=== PATIENT | male | born 1975 | race Caucasian/White ===

== ENCOUNTER 2017-04-25 19:36 | Observation (INO) | payer OTHER ==
[~2017-04-25] VITALS: Ht 188 cm; Wt 137.1 kg
[~2017-04-25 19:36] MED LIST: ALBU90OI INH; ALBU90OI6 INH; ASPI81CH PO; AZIT250 PO; BENZ100A PO; CETI10 PO; CYCL10; CYCL10 PO; DIPH50 PO; DULO30 PO; Dazidox10 MG PO; EPIN.3I IM; ERYT500 PO; FLUT110OIA IH; GABA800 PO; GUAI600T33 PO; HYDACE5; HYDACE5 PO; HYDACE5325 PO; HYDGUAL120 PO; HYDR.5TC TOP; IBUP200; IBUP800 PO; LISI20 PO; META800 PO; MONT10T; NAPR500; NAPR500 PO; OXYACE5T PO; OXYACE7.5T PO; PANT40 PO; PRED20 PO; PROACE100 PO; PROM25 PO; Percocet 10-321 EACH PO; Percocet 5-3251 EACH PO; RANI150 PO; SULTRIDS PO; TYLENOL COLD & FLU; Zofran Odt4 MG PO; [UNRECOGNIZED DRUG - CODE]; [UNRECOGNIZED DRUG - CODE] PO; [UNRECOGNIZED DRUG - OTHER]
[2017-04-25] MEDS ORDERED: OXYC10TA19 PO (20:33)
[2017-04-25] MEDS ORDERED: GABA600 PO (20:33)
[2017-04-25 20:42] LABS: Alanine Aminotransfer (ALT/SGP 55 U/L (12-78); Albumin, Blood 3.6 g/dL (3.4-5.0); Albumin/Globulin Ratio 1.2 (0.8-1.8); Alk Phos 46 U/L (50-136); Anion Gap 8 mmol/L (6-16); Aspartate Aminotrans (AST/SGOT 35 U/L (12-37); Bilirubin, Total 0.3 mg/dL (0.1-1.0); Blood Urea Nitrogen 11 mg/dL (8-24); Bun/Creatinine Ratio 16.1 (12.0-20.0); CO2, Blood 26 mmol/L (21-32); Calcium, Blood 8.3 mg/dL (8.5-10.1); Chloride, Blood 108 mmol/L (98-108); Creatinine, Blood 0.68 mg/dL (0.60-1.20); Globulin, Blood 3.1 g/dL (2.2-4.0); Glomerular Filtration Rate >60 (60-); Glucose, Blood 124 mg/dL (70-99); Potassium, Blood 3.9 mmol/L (3.5-5.5); Sodium, Blood 142 mmol/L (136-145); Total Protein, Blood 6.7 g/dL (6.4-8.2); Troponin I 0.037 ng/mL (0.000-0.040)
[2017-04-25 21:11] LABS: BASOPHILS ABSOLUTE AUTO 0.09 K/mm3 (0.00-0.23); BASOPHILS PERCENT AUTO 1 % (0-2); EOSINOPHILS PERCENT AUTO 6 % (0-6); Hematocrit 40.6 % (37.0-53.0); IMMATURE GRAN ABSOLUTE AUTO 0.06 K/mm3 (0.00-0.10); IMMATURE GRAN PERCENT AUTO 1 % (0-1); LYMPHOCYTES PERCENT AUTO 32 % (21-46); MONOCYTES PERCENT AUTO 11 % (4-13); Mean Corpuscular HGB 29.7 pg (26.0-34.0); Mean Corpuscular HGB Conc 34.5 g/dL (31.5-36.5); Mean Corpuscular Volume 86 fL (80-100); Mean Platelet Volume 9.5 fL (9.1-12.4); NEUTROPHILS ABSOLUTE AUTO 3.07 K/mm3 (1.96-9.15); NEUTROPHILS PERCENT AUTO 49 % (41-73); Platelet Count 215 K/mm3 (150-400); RDW Coefficient Variation 11.7 % (11.7-14.2); RDW Standard Deviation 37.2 fL (35.1-46.3); Red Blood Cell Count 4.72 M/mm3 (4.30-5.90); White Blood Cell Count 6.32 K/mm3 (4.00-11.30)
[2017-04-26 04:48] LABS: Cholesterol 180 mg/dL (50-200); HDL Cholesterol 36 mg/dL (>39); LDL/HDL RATIO 2.1; Low Density Lipoprotein Chol 76 mg/dL (0-110); Triglycerides 341 mg/dL (30-160); Very Low Density Lipoprot Chol 68 mg/dL (6-32)
[2017-10-23] MEDS ORDERED: OXYC10ER PO (18:36)
[2017-11-16] MEDS ORDERED: CARV6.25 PO (12:41)
[2017-11-16] MEDS ORDERED: SPIR25 PO (12:41)
[2017-12-23] MEDS ORDERED: AMLO5 PO (15:51)
[2017-12-23] MEDS ORDERED: MORP15ER PO (15:51)
[2017-12-23] MEDS ORDERED: ISOMON20 PO (15:52)
[2017-12-23] MEDS ORDERED: NEBI5 PO (15:53)
[2017-12-23] MEDS ORDERED: ATOR20 PO (15:53)
[2018-01-05] MEDS ORDERED: TRAM50 PO (18:35)
[2018-01-05] MEDS ORDERED: METO25ER PO (18:37)
[2018-01-05] MEDS ORDERED: Nitroglycerin1 EAC1 TD (18:55)
[2018-01-20] MEDS ORDERED: Isosorbide Mono60 MG PO (14:19)
[2018-01-20] MEDS ORDERED: ACETAMINOPHEN500 MG PO (14:24)
== END 2017-04-26 18:30 | disposition home or self-care (01) ==
LOC: ER 19:36 → PCU 19:37
PROVIDERS: Emergency Medicine; Family Medicine
PROC: B2111ZZ Fluoroscopy of Multiple Coronary Arteries using Low Osmolar Contrast (ICD-10-PCS; principal; 2017-04-26)
DX: R07.89 Other chest pain (principal); E78.5 Hyperlipidemia, unspecified; I10 Essential (primary) hypertension; K21.9 Gastro-esophageal reflux disease without esophagitis; S39.012A Strain of muscle, fascia and tendon of lower back, initial encounter; M25.511 Pain in right shoulder; E66.01 Morbid (severe) obesity due to excess calories; G47.33 Obstructive sleep apnea (adult) (pediatric); G89.4 Chronic pain syndrome; W11.XXXA Fall on and from ladder, initial encounter; Y93.9 Activity, unspecified; Y92.9 Unspecified place or not applicable; Y99.9 Unspecified external cause status; Z79.82 Long term (current) use of aspirin; Z79.899 Other long term (current) drug therapy; Z88.8 Allergy status to other drugs, medicaments and biological substances; Z88.0 Allergy status to penicillin; Z88.1 Allergy status to other antibiotic agents
CPT/HCPCS: 36415; 71046; 72131; 73030; 80053; 80061; 83880; 84484; 85025; 93005; 93010; 93454; 96374; 96376; 99152; 99153; 99285; C1769; C1894; G0378; J1170; J1644; J2250; J2270; J3010; J7030; Q9967

== ENCOUNTER 2017-05-04 19:43 | Emergency (ER) | payer OTHER ==
[~2017-05-04] VITALS: Ht 190.5 cm; Wt 140.6 kg
[~2017-05-04 19:43] MED LIST changes: +GABA600 PO; +OXYC10TA19 PO
[2017-05-04] MEDS ORDERED: DILTIAZEM 24HR180 MG PO (19:55)
[2017-05-04 20:17] LABS: BASOPHILS ABSOLUTE AUTO 0.14 K/mm3 (0.00-0.23); BASOPHILS PERCENT AUTO 1 % (0-2); EOSINOPHILS ABSOLUTE AUTO 0.43 K/mm3 (0.00-0.68); EOSINOPHILS PERCENT AUTO 4 % (0-6); Hemoglobin 15.3 g/dL (13.5-17.5); IMMATURE GRAN ABSOLUTE AUTO 0.11 K/mm3 (0.00-0.10); IMMATURE GRAN PERCENT AUTO 1 % (0-1); LYMPHOCYTES ABSOLUTE AUTO 2.08 K/mm3 (0.84-5.20); LYMPHOCYTES PERCENT AUTO 21 % (21-46); MONOCYTES ABSOLUTE AUTO 0.74 K/mm3 (0.16-1.47); MONOCYTES PERCENT AUTO 8 % (4-13); Mean Corpuscular HGB 29.8 pg (26.0-34.0); Mean Corpuscular HGB Conc 34.8 g/dL (31.5-36.5); Mean Corpuscular Volume 86 fL (80-100); Mean Platelet Volume 9.9 fL (9.1-12.4); NEUTROPHILS PERCENT AUTO 64 % (41-73); Platelet Count 270 K/mm3 (150-400); RDW Coefficient Variation 11.7 % (11.7-14.2); RDW Standard Deviation 36.6 fL (35.1-46.3); Red Blood Cell Count 5.13 M/mm3 (4.30-5.90)
[2017-05-04 20:39] LABS: Alanine Aminotransfer (ALT/SGP 46 U/L (12-78); Albumin, Blood 3.9 g/dL (3.4-5.0); Albumin/Globulin Ratio 1.2 (0.8-1.8); Alk Phos 57 U/L (50-136); Anion Gap 11 mmol/L (6-16); Aspartate Aminotrans (AST/SGOT 20 U/L (12-37); Bilirubin, Total 0.3 mg/dL (0.1-1.0); Blood Urea Nitrogen 10 mg/dL (8-24); Bun/Creatinine Ratio 15.7 (12.0-20.0); CO2, Blood 23 mmol/L (21-32); Calcium, Blood 8.4 mg/dL (8.5-10.1); Chloride, Blood 105 mmol/L (98-108); Creatinine, Blood 0.64 mg/dL (0.60-1.20); Globulin, Blood 3.3 g/dL (2.2-4.0); Glomerular Filtration Rate >60 (60-); Glucose, Blood 182 mg/dL (70-99); Potassium, Blood 3.6 mmol/L (3.5-5.5); Sodium, Blood 139 mmol/L (136-145); Total Protein, Blood 7.2 g/dL (6.4-8.2); Troponin I 0.032 ng/mL (0.000-0.040)
[2017-05-04] MEDS ORDERED: IBUP600 PO (21:35)
[2017-05-04] MEDS ORDERED: Ativan1 MG SL (21:45)
[2017-05-04] MEDS ORDERED: HYDR1TAB94 PO (21:45)
[2017-10-23] MEDS ORDERED: OXYC10ER PO (18:36)
[2017-11-16] MEDS ORDERED: CARV6.25 PO (12:41)
[2017-11-16] MEDS ORDERED: SPIR25 PO (12:41)
[2017-12-23] MEDS ORDERED: MORP15ER PO (15:51)
[2017-12-23] MEDS ORDERED: AMLO5 PO (15:51)
[2017-12-23] MEDS ORDERED: ISOMON20 PO (15:52)
[2017-12-23] MEDS ORDERED: NEBI5 PO (15:53)
[2017-12-23] MEDS ORDERED: ATOR20 PO (15:53)
[2018-01-05] MEDS ORDERED: TRAM50 PO (18:35)
[2018-01-05] MEDS ORDERED: METO25ER PO (18:37)
[2018-01-05] MEDS ORDERED: Nitroglycerin1 EAC1 TD (18:55)
[2018-01-20] MEDS ORDERED: Isosorbide Mono60 MG PO (14:19)
[2018-01-20] MEDS ORDERED: ACETAMINOPHEN500 MG PO (14:24)
== END 2017-05-04 21:55 | disposition home or self-care (01) ==
LOC: ER 19:43
PROVIDERS: Emergency Medicine
DX: R07.9 Chest pain, unspecified (principal); Z88.0 Allergy status to penicillin; Z88.8 Allergy status to other drugs, medicaments and biological substances; Z79.899 Other long term (current) drug therapy; Z79.82 Long term (current) use of aspirin; Z79.891 Long term (current) use of opiate analgesic; I10 Essential (primary) hypertension; Z87.891 Personal history of nicotine dependence
CPT/HCPCS: 36415; 71046; 80053; 84484; 85025; 93005; 93010; 96374; 96375; 99284; J1170; J1885; J2405

== ENCOUNTER 2017-05-11 18:20 | Emergency (ER) | payer OTHER ==
[~2017-05-11] VITALS: Ht 188 cm; Wt 139.0 kg
[~2017-05-11 18:20] MED LIST changes: +Ativan1 MG SL; +DILTIAZEM 24HR180 MG PO; +HYDR1TAB94 PO; +IBUP600 PO
[2017-05-11 20:44] LABS: BASOPHILS ABSOLUTE AUTO 0.05 K/mm3 (0.00-0.23); BASOPHILS PERCENT AUTO 1 % (0-2); EOSINOPHILS PERCENT AUTO 6 % (0-6); Hematocrit 40.6 % (37.0-53.0); Hemoglobin 13.9 g/dL (13.5-17.5); IMMATURE GRAN ABSOLUTE AUTO 0.04 K/mm3 (0.00-0.10); IMMATURE GRAN PERCENT AUTO 1 % (0-1); LYMPHOCYTES ABSOLUTE AUTO 1.66 K/mm3 (0.84-5.20); LYMPHOCYTES PERCENT AUTO 21 % (21-46); MONOCYTES ABSOLUTE AUTO 0.91 K/mm3 (0.16-1.47); MONOCYTES PERCENT AUTO 11 % (4-13); Mean Corpuscular HGB 28.8 pg (26.0-34.0); Mean Corpuscular HGB Conc 34.2 g/dL (31.5-36.5); Mean Corpuscular Volume 84 fL (80-100); Mean Platelet Volume 9.6 fL (9.1-12.4); NEUTROPHILS PERCENT AUTO 60 % (41-73); Platelet Count 218 K/mm3 (150-400); RDW Coefficient Variation 11.7 % (11.7-14.2); RDW Standard Deviation 35.7 fL (35.1-46.3); Red Blood Cell Count 4.82 M/mm3 (4.30-5.90); White Blood Cell Count 7.96 K/mm3 (4.00-11.30)
[2017-05-11 21:05] LABS: Alanine Aminotransfer (ALT/SGP 101 U/L (12-78); Albumin, Blood 3.9 g/dL (3.4-5.0); Albumin/Globulin Ratio 1.1 (0.8-1.8); Alk Phos 48 U/L (50-136); Anion Gap 9 mmol/L (6-16); Aspartate Aminotrans (AST/SGOT 77 U/L (12-37); Bilirubin, Total 0.6 mg/dL (0.1-1.0); Blood Urea Nitrogen 6 mg/dL (8-24); Bun/Creatinine Ratio 7.8 (12.0-20.0); CO2, Blood 30 mmol/L (21-32); Calcium, Blood 8.7 mg/dL (8.5-10.1); Chloride, Blood 95 mmol/L (98-108); Creatinine, Blood 0.77 mg/dL (0.60-1.20); Globulin, Blood 3.5 g/dL (2.2-4.0); Glomerular Filtration Rate >60 (60-); Glucose, Blood 118 mg/dL (70-99); Potassium, Blood 3.1 mmol/L (3.5-5.5); Sodium, Blood 134 mmol/L (136-145); Total Protein, Blood 7.4 g/dL (6.4-8.2); Troponin I 0.036 ng/mL (0.000-0.040)
[2017-05-12 00:18] LABS: Source, Urine Clean Catch
[2017-05-12 00:21] LABS: Bilirubin, Urine Neg (Neg); Blood, Urine 1+ (Neg); Glucose Qualitative, Urine Neg (Neg); Ketones, Urine Neg (Neg); Leukocyte Esterase, Urine Neg (Neg); Nitrite, Urine Neg (Neg); Protein, Urine Neg (Neg); Urobilinogen, Urine NORM (Normal); pH, Urine 6.5 (5.0-8.0)
[2017-05-12 00:23] LABS: Appearance, Urine Clear (Clear); Color, Urine Yellow (P-Yellow)
[2017-05-12 00:29] LABS: Red Blood Cells, Urine 0-2 /hpf (0-2); White Blood Cells, Urine 0-2 /hpf (0-5)
[2017-05-12 00:30] LABS: Bacteria Few /hpf; Squamous Epithelial Cells Not Seen /hpf (Few)
[2017-05-12 04:24] LABS: Influenza A Negative (NEGATIVE); Influenza B Negative (NEGATIVE)
[2017-10-23] MEDS ORDERED: OXYC10ER PO (18:36)
[2017-11-16] MEDS ORDERED: SPIR25 PO (12:41)
[2017-11-16] MEDS ORDERED: CARV6.25 PO (12:41)
[2017-12-23] MEDS ORDERED: AMLO5 PO (15:51)
[2017-12-23] MEDS ORDERED: MORP15ER PO (15:51)
[2017-12-23] MEDS ORDERED: ISOMON20 PO (15:52)
[2017-12-23] MEDS ORDERED: NEBI5 PO (15:53)
[2017-12-23] MEDS ORDERED: ATOR20 PO (15:53)
[2018-01-05] MEDS ORDERED: TRAM50 PO (18:35)
[2018-01-05] MEDS ORDERED: METO25ER PO (18:37)
[2018-01-05] MEDS ORDERED: Nitroglycerin1 EAC1 TD (18:55)
[2018-01-20] MEDS ORDERED: Isosorbide Mono60 MG PO (14:19)
[2018-01-20] MEDS ORDERED: ACETAMINOPHEN500 MG PO (14:24)
== END 2017-05-12 02:56 | disposition home or self-care (01) ==
LOC: ER 18:20
PROVIDERS: Emergency Medicine
DX: J18.9 Pneumonia, unspecified organism (principal); I10 Essential (primary) hypertension; Z88.0 Allergy status to penicillin; Z88.1 Allergy status to other antibiotic agents; Z88.8 Allergy status to other drugs, medicaments and biological substances; Z79.82 Long term (current) use of aspirin; Z79.51 Long term (current) use of inhaled steroids; Z79.899 Other long term (current) drug therapy
CPT/HCPCS: 36415; 71046; 74176; 80053; 81001; 83880; 84484; 85025; 87804; 93005; 93010; 96365; 96375; 99284; J1170; J1956; J2405; J7030

== ENCOUNTER 2017-07-07 19:48 | Emergency (ER) | payer OTHER ==
[~2017-07-07] VITALS: Ht 185.4 cm; Wt 131.5 kg
== END 2017-07-07 21:18 | disposition home or self-care (01) ==
LOC: ER 19:48
DX: M25.512 Pain in left shoulder (principal); Z88.0 Allergy status to penicillin; Z79.899 Other long term (current) drug therapy; Z79.82 Long term (current) use of aspirin; I10 Essential (primary) hypertension; Z87.891 Personal history of nicotine dependence
CPT/HCPCS: 73030; 73080; 99283

== ENCOUNTER 2017-09-13 17:26 | Emergency (ER) | payer OTHER ==
[~2017-09-13] VITALS: Ht 188 cm; Wt 136.1 kg
[2017-09-13] MEDS ORDERED: IBUP600 PO (18:04)
== END 2017-09-13 18:16 | disposition home or self-care (01) ==
LOC: ER 17:26
DX: S93.401A Sprain of unspecified ligament of right ankle, initial encounter (principal); I10 Essential (primary) hypertension; Z88.0 Allergy status to penicillin; Z79.899 Other long term (current) drug therapy; Z79.82 Long term (current) use of aspirin; W17.89XA Other fall from one level to another, initial encounter
CPT/HCPCS: 29515; 73610; 99283

== ENCOUNTER 2017-10-23 12:23 | Observation (INO) | payer OTHER ==
[~2017-10-23] VITALS: Ht 185.4 cm; Wt 138.0 kg
[2017-10-23 13:02] LABS: BASOPHILS ABSOLUTE AUTO 0.08 K/mm3 (0.00-0.23); BASOPHILS PERCENT AUTO 1 % (0-2); EOSINOPHILS ABSOLUTE AUTO 0.47 K/mm3 (0.00-0.68); EOSINOPHILS PERCENT AUTO 8 % (0-6); Hematocrit 42.2 % (37.0-53.0); Hemoglobin 14.9 g/dL (13.5-17.5); IMMATURE GRAN ABSOLUTE AUTO 0.04 K/mm3 (0.00-0.10); IMMATURE GRAN PERCENT AUTO 1 % (0-1); LYMPHOCYTES ABSOLUTE AUTO 1.16 K/mm3 (0.84-5.20); LYMPHOCYTES PERCENT AUTO 20 % (21-46); MONOCYTES ABSOLUTE AUTO 0.37 K/mm3 (0.16-1.47); MONOCYTES PERCENT AUTO 6 % (4-13); Mean Corpuscular HGB 30.3 pg (26.0-34.0); Mean Corpuscular HGB Conc 35.3 g/dL (31.5-36.5); Mean Corpuscular Volume 86 fL (80-100); Mean Platelet Volume 9.7 fL (9.1-12.4); NEUTROPHILS PERCENT AUTO 64 % (41-73); Platelet Count 241 K/mm3 (150-400); RDW Coefficient Variation 11.7 % (11.7-14.2); RDW Standard Deviation 36.6 fL (35.1-46.3); Red Blood Cell Count 4.92 M/mm3 (4.30-5.90); White Blood Cell Count 5.92 K/mm3 (4.00-11.30)
[2017-10-23 13:27] LABS: Alanine Aminotransfer (ALT/SGP 52 U/L (12-78); Albumin, Blood 3.8 g/dL (3.4-5.0); Albumin/Globulin Ratio 1.2 (0.8-1.8); Alk Phos 57 U/L (50-136); Anion Gap 6 mmol/L (6-16); Aspartate Aminotrans (AST/SGOT 25 U/L (12-37); Bilirubin, Total 0.4 mg/dL (0.1-1.0); Blood Urea Nitrogen 9 mg/dL (8-24); Bun/Creatinine Ratio 13.4 (12.0-20.0); CO2, Blood 27 mmol/L (21-32); Calcium, Blood 8.6 mg/dL (8.5-10.1); Chloride, Blood 108 mmol/L (98-108); Creatinine, Blood 0.67 mg/dL (0.60-1.20); Globulin, Blood 3.2 g/dL (2.2-4.0); Glomerular Filtration Rate >60 (60-); Glucose, Blood 121 mg/dL (70-99); Sodium, Blood 141 mmol/L (136-145); Troponin I 0.048 ng/mL (0.000-0.040)
[2017-10-23] MEDS ORDERED: OXYC10TA19 PO (18:36)
[2017-10-24] MEDS ORDERED: Nitroglycerin0.4 MG SL (13:55)
[2017-10-24] MEDS ORDERED: Amlodipine Bes2.5 MG PO (13:55)
== END 2017-10-24 14:06 | disposition home or self-care (01) ==
LOC: ER 12:23 → MEDS 12:24 → ENPENDDIS 10-24 13:51 → MEDS 10-24 14:06
PROVIDERS: Emergency Medicine
DX: R07.9 Chest pain, unspecified (principal); I10 Essential (primary) hypertension; G89.29 Other chronic pain; M54.9 Dorsalgia, unspecified; G47.30 Sleep apnea, unspecified; R53.83 Other fatigue; R53.81 Other malaise; F17.220 Nicotine dependence, chewing tobacco, uncomplicated; Z88.0 Allergy status to penicillin; Z79.82 Long term (current) use of aspirin; Z79.899 Other long term (current) drug therapy; Z82.49 Family history of ischemic heart disease and other diseases of the circulatory system; Z79.891 Long term (current) use of opiate analgesic
CPT/HCPCS: 36415; 71046; 80053; 83880; 84484; 85025; 93005; 93010; 96372; 99285-25; G0378; J1650

== ENCOUNTER 2017-10-29 10:00 | Emergency (ER) | payer OTHER ==
[~2017-10-29] VITALS: Ht 185.4 cm; Wt 136.1 kg
[~2017-10-29 10:00] MED LIST changes: +Amlodipine Bes2.5 MG PO; +Nitroglycerin0.4 MG SL
[2017-10-29 10:45] LABS: BASOPHILS ABSOLUTE AUTO 0.12 K/mm3 (0.00-0.23); BASOPHILS PERCENT AUTO 1 % (0-2); EOSINOPHILS ABSOLUTE AUTO 0.18 K/mm3 (0.00-0.68); EOSINOPHILS PERCENT AUTO 2 % (0-6); Hematocrit 45.1 % (37.0-53.0); Hemoglobin 15.2 g/dL (13.5-17.5); IMMATURE GRAN ABSOLUTE AUTO 0.05 K/mm3 (0.00-0.10); IMMATURE GRAN PERCENT AUTO 1 % (0-1); LYMPHOCYTES ABSOLUTE AUTO 1.77 K/mm3 (0.84-5.20); LYMPHOCYTES PERCENT AUTO 19 % (21-46); MONOCYTES ABSOLUTE AUTO 0.57 K/mm3 (0.16-1.47); MONOCYTES PERCENT AUTO 6 % (4-13); Mean Corpuscular HGB 28.9 pg (26.0-34.0); Mean Corpuscular HGB Conc 33.7 g/dL (31.5-36.5); Mean Corpuscular Volume 86 fL (80-100); Mean Platelet Volume 9.8 fL (9.1-12.4); NEUTROPHILS ABSOLUTE AUTO 6.76 K/mm3 (1.96-9.15); NEUTROPHILS PERCENT AUTO 72 % (41-73); Platelet Count 289 K/mm3 (150-400); RDW Coefficient Variation 11.9 % (11.7-14.2); Red Blood Cell Count 5.26 M/mm3 (4.30-5.90); White Blood Cell Count 9.45 K/mm3 (4.00-11.30)
[2017-10-29 10:55] LABS: Alanine Aminotransfer (ALT/SGP 53 U/L (12-78); Albumin, Blood 4.4 g/dL (3.4-5.0); Albumin/Globulin Ratio 1.3 (0.8-1.8); Alk Phos 60 U/L (50-136); Anion Gap 7 mmol/L (6-16); Aspartate Aminotrans (AST/SGOT 27 U/L (12-37); Bilirubin, Total 0.6 mg/dL (0.1-1.0); Blood Urea Nitrogen 14 mg/dL (8-24); Bun/Creatinine Ratio 15.2 (12.0-20.0); CO2, Blood 25 mmol/L (21-32); Calcium, Blood 8.9 mg/dL (8.5-10.1); Chloride, Blood 107 mmol/L (98-108); Creatinine, Blood 0.92 mg/dL (0.60-1.20); Globulin, Blood 3.4 g/dL (2.2-4.0); Glomerular Filtration Rate >60 (60-); Glucose, Blood 115 mg/dL (70-99); Potassium, Blood 3.7 mmol/L (3.5-5.5); Sodium, Blood 139 mmol/L (136-145); Total Protein, Blood 7.8 g/dL (6.4-8.2); Troponin I 0.026 ng/mL (0.000-0.040)
[2017-10-29 10:59] LABS: Thyroid Stimulating Hormone 0.465 uIU/mL (0.360-4.800)
[2017-10-29] MEDS ORDERED: OXYC10ER PO (12:23)
== END 2017-10-29 12:42 | disposition home or self-care (01) ==
LOC: ER 10:00
PROVIDERS: Emergency Medicine
DX: R07.9 Chest pain, unspecified (principal); I10 Essential (primary) hypertension; Z88.0 Allergy status to penicillin; Z79.899 Other long term (current) drug therapy; Z79.82 Long term (current) use of aspirin
CPT/HCPCS: 36415; 71045; 80053; 84443; 84484; 85025; 93005; 93010; 96374; 96375; 99285-25; J2405; J3010; J3490

== ENCOUNTER 2017-11-02 11:27 | Emergency (ER) | payer OTHER ==
[~2017-11-02] VITALS: Ht 188 cm; Wt 136.1 kg
[~2017-11-02 11:27] MED LIST changes: +OXYC10ER PO
[2017-11-02 12:00] LABS: BASOPHILS ABSOLUTE AUTO 0.07 K/mm3 (0.00-0.23); BASOPHILS PERCENT AUTO 1 % (0-2); EOSINOPHILS ABSOLUTE AUTO 0.41 K/mm3 (0.00-0.68); EOSINOPHILS PERCENT AUTO 7 % (0-6); Hemoglobin 14.7 g/dL (13.5-17.5); IMMATURE GRAN ABSOLUTE AUTO 0.03 K/mm3 (0.00-0.10); IMMATURE GRAN PERCENT AUTO 1 % (0-1); LYMPHOCYTES ABSOLUTE AUTO 1.65 K/mm3 (0.84-5.20); LYMPHOCYTES PERCENT AUTO 26 % (21-46); MONOCYTES ABSOLUTE AUTO 0.42 K/mm3 (0.16-1.47); MONOCYTES PERCENT AUTO 7 % (4-13); Mean Corpuscular HGB 29.9 pg (26.0-34.0); Mean Corpuscular Volume 86 fL (80-100); Mean Platelet Volume 9.6 fL (9.1-12.4); NEUTROPHILS ABSOLUTE AUTO 3.72 K/mm3 (1.96-9.15); NEUTROPHILS PERCENT AUTO 59 % (41-73); Platelet Count 282 K/mm3 (150-400); RDW Coefficient Variation 11.9 % (11.7-14.2); RDW Standard Deviation 37.3 fL (35.1-46.3); Red Blood Cell Count 4.91 M/mm3 (4.30-5.90)
[2017-11-02 12:21] LABS: Troponin I 0.033 ng/mL (0.000-0.040)
[2017-11-02 12:26] LABS: Alanine Aminotransfer (ALT/SGP 45 U/L (12-78); Albumin/Globulin Ratio 1.2 (0.8-1.8); Alk Phos 56 U/L (50-136); Anion Gap 8 mmol/L (6-16); Aspartate Aminotrans (AST/SGOT 23 U/L (12-37); Bilirubin, Total 0.7 mg/dL (0.1-1.0); Blood Urea Nitrogen 12 mg/dL (8-24); Bun/Creatinine Ratio 14.4 (12.0-20.0); CO2, Blood 25 mmol/L (21-32); Calcium, Blood 8.5 mg/dL (8.5-10.1); Chloride, Blood 109 mmol/L (98-108); Creatinine, Blood 0.83 mg/dL (0.60-1.20); Globulin, Blood 3.2 g/dL (2.2-4.0); Glomerular Filtration Rate >60 (60-); Glucose, Blood 110 mg/dL (70-99); Potassium, Blood 3.7 mmol/L (3.5-5.5); Sodium, Blood 142 mmol/L (136-145); Total Protein, Blood 7.2 g/dL (6.4-8.2)
== END 2017-11-02 13:40 | disposition home or self-care (01) ==
LOC: ER 11:27
PROVIDERS: Emergency Medicine
DX: R07.9 Chest pain, unspecified (principal); I10 Essential (primary) hypertension; Z88.0 Allergy status to penicillin; Z79.899 Other long term (current) drug therapy; Z79.82 Long term (current) use of aspirin
CPT/HCPCS: 36415; 80053; 84484; 85025; 93005; 93010; 99285-25

== ENCOUNTER 2017-11-26 10:55 | Emergency (ER) | payer OTHER ==
[~2017-11-26] VITALS: Ht 188 cm; Wt 127.0 kg
[~2017-11-26 10:55] MED LIST changes: +CARV6.25 PO; +SPIR25 PO
[2017-11-26 11:38] LABS: BASOPHILS ABSOLUTE AUTO 0.09 K/mm3 (0.00-0.23); BASOPHILS PERCENT AUTO 1 % (0-2); EOSINOPHILS ABSOLUTE AUTO 0.17 K/mm3 (0.00-0.68); EOSINOPHILS PERCENT AUTO 2 % (0-6); Hematocrit 44.1 % (37.0-53.0); Hemoglobin 15.1 g/dL (13.5-17.5); IMMATURE GRAN ABSOLUTE AUTO 0.05 K/mm3 (0.00-0.10); IMMATURE GRAN PERCENT AUTO 1 % (0-1); LYMPHOCYTES ABSOLUTE AUTO 1.51 K/mm3 (0.84-5.20); LYMPHOCYTES PERCENT AUTO 20 % (21-46); MONOCYTES ABSOLUTE AUTO 0.44 K/mm3 (0.16-1.47); MONOCYTES PERCENT AUTO 6 % (4-13); Mean Corpuscular HGB 29.5 pg (26.0-34.0); Mean Corpuscular HGB Conc 34.2 g/dL (31.5-36.5); Mean Corpuscular Volume 86 fL (80-100); Mean Platelet Volume 9.6 fL (9.1-12.4); NEUTROPHILS PERCENT AUTO 71 % (41-73); Platelet Count 250 K/mm3 (150-400); RDW Coefficient Variation 11.3 % (11.7-14.2); RDW Standard Deviation 35.8 fL (35.1-46.3); Red Blood Cell Count 5.11 M/mm3 (4.30-5.90); White Blood Cell Count 7.66 K/mm3 (4.00-11.30)
[2017-11-26 12:04] LABS: Troponin I 0.024 ng/mL (0.000-0.040)
[2017-11-26 12:05] LABS: Alanine Aminotransfer (ALT/SGP 44 U/L (12-78); Albumin, Blood 3.9 g/dL (3.4-5.0); Albumin/Globulin Ratio 1.1 (0.8-1.8); Alk Phos 59 U/L (50-136); Anion Gap 6 mmol/L (6-16); Aspartate Aminotrans (AST/SGOT 17 U/L (12-37); Bilirubin, Total 0.4 mg/dL (0.1-1.0); Blood Urea Nitrogen 15 mg/dL (8-24); CO2, Blood 26 mmol/L (21-32); Calcium, Blood 8.6 mg/dL (8.5-10.1); Chloride, Blood 106 mmol/L (98-108); Creatinine, Blood 0.79 mg/dL (0.60-1.20); Globulin, Blood 3.4 g/dL (2.2-4.0); Glomerular Filtration Rate >60 (60-); Glucose, Blood 171 mg/dL (70-99); Potassium, Blood 3.9 mmol/L (3.5-5.5); Sodium, Blood 138 mmol/L (136-145); Total Protein, Blood 7.3 g/dL (6.4-8.2)
[2017-11-26 12:07] LABS: Thyroid Stimulating Hormone 0.997 uIU/mL (0.360-4.800)
[2017-11-26] MEDS ORDERED: Protonix40 MG PO (13:31)
== END 2017-11-26 13:53 | disposition home or self-care (01) ==
LOC: ER 10:55
PROVIDERS: Emergency Medicine
DX: R07.9 Chest pain, unspecified (principal); G89.29 Other chronic pain; I42.9 Cardiomyopathy, unspecified; I10 Essential (primary) hypertension; Z88.0 Allergy status to penicillin; Z79.899 Other long term (current) drug therapy; Z79.82 Long term (current) use of aspirin
CPT/HCPCS: 36415; 71045; 80053; 83880; 84443; 84484; 85025; 93005; 93010; 96361; 96374; 99284-25; J2405; J7030

== ENCOUNTER 2017-11-30 19:31 | Observation (INO) | payer OTHER ==
[~2017-11-30] VITALS: Ht 188 cm; Wt 134.0 kg
[~2017-11-30 19:31] MED LIST changes: +Protonix40 MG PO
[2017-11-30 19:56] LABS: BASOPHILS ABSOLUTE AUTO 0.11 K/mm3 (0.00-0.23); BASOPHILS PERCENT AUTO 1 % (0-2); EOSINOPHILS ABSOLUTE AUTO 0.41 K/mm3 (0.00-0.68); EOSINOPHILS PERCENT AUTO 5 % (0-6); Hematocrit 40.6 % (37.0-53.0); Hemoglobin 13.8 g/dL (13.5-17.5); IMMATURE GRAN ABSOLUTE AUTO 0.14 K/mm3 (0.00-0.10); IMMATURE GRAN PERCENT AUTO 2 % (0-1); LYMPHOCYTES ABSOLUTE AUTO 2.76 K/mm3 (0.84-5.20); LYMPHOCYTES PERCENT AUTO 31 % (21-46); MONOCYTES ABSOLUTE AUTO 0.69 K/mm3 (0.16-1.47); MONOCYTES PERCENT AUTO 8 % (4-13); Mean Corpuscular HGB 29.5 pg (26.0-34.0); Mean Corpuscular Volume 87 fL (80-100); Mean Platelet Volume 9.6 fL (9.1-12.4); NEUTROPHILS ABSOLUTE AUTO 4.74 K/mm3 (1.96-9.15); NEUTROPHILS PERCENT AUTO 54 % (41-73); Platelet Count 267 K/mm3 (150-400); RDW Coefficient Variation 11.5 % (11.7-14.2); RDW Standard Deviation 36.6 fL (35.1-46.3); Red Blood Cell Count 4.68 M/mm3 (4.30-5.90); White Blood Cell Count 8.85 K/mm3 (4.00-11.30)
[2017-11-30 20:35] LABS: Alanine Aminotransfer (ALT/SGP 38 U/L (12-78); Albumin, Blood 3.7 g/dL (3.4-5.0); Albumin/Globulin Ratio 1.2 (0.8-1.8); Alk Phos 57 U/L (50-136); Anion Gap 7 mmol/L (6-16); Aspartate Aminotrans (AST/SGOT 16 U/L (12-37); Bilirubin, Total 0.2 mg/dL (0.1-1.0); Blood Urea Nitrogen 13 mg/dL (8-24); Bun/Creatinine Ratio 17.5 (12.0-20.0); CO2, Blood 25 mmol/L (21-32); Calcium, Blood 8.1 mg/dL (8.5-10.1); Chloride, Blood 108 mmol/L (98-108); Creatinine, Blood 0.74 mg/dL (0.60-1.20); Glomerular Filtration Rate >60 (60-); Glucose, Blood 144 mg/dL (70-99); Sodium, Blood 140 mmol/L (136-145); Total Protein, Blood 6.7 g/dL (6.4-8.2)
[2017-12-01] MEDS ORDERED: OXYC10TA19 PO (00:34)
[2017-12-01 04:36] LABS: Source, Urine Clean Catch
[2017-12-01 04:38] LABS: Bilirubin, Urine Neg (Neg); Blood, Urine 1+ (Neg); Glucose Qualitative, Urine Neg (Neg); Ketones, Urine Neg (Neg); Leukocyte Esterase, Urine Neg (Neg); Nitrite, Urine Neg (Neg); Protein, Urine Neg (Neg); Specific Gravity, Urine 1.025 (1.003-1.022); Urobilinogen, Urine NORM (Normal)
[2017-12-01 04:52] LABS: Appearance, Urine Clear (Clear); Color, Urine Yellow (P-Yellow); Red Blood Cells, Urine 0-2 /hpf (0-2); White Blood Cells, Urine 0-2 /hpf (0-5)
[2017-12-01 04:53] LABS: Bacteria Few /hpf; Mucus Light (0-Heavy); Squamous Epithelial Cells Not Seen /hpf (Few)
[2017-12-01 04:55] LABS: Hematocrit 39.7 % (37.0-53.0); Hemoglobin 13.6 g/dL (13.5-17.5); Mean Corpuscular HGB 29.4 pg (26.0-34.0); Mean Corpuscular HGB Conc 34.3 g/dL (31.5-36.5); Mean Corpuscular Volume 86 fL (80-100); Mean Platelet Volume 10.1 fL (9.1-12.4); Platelet Count 217 K/mm3 (150-400); RDW Coefficient Variation 11.6 % (11.7-14.2); RDW Standard Deviation 35.9 fL (35.1-46.3); Red Blood Cell Count 4.63 M/mm3 (4.30-5.90); White Blood Cell Count 7.72 K/mm3 (4.00-11.30)
[2017-12-01 05:19] LABS: Troponin I 0.035 ng/mL (0.000-0.040)
[2017-12-01 05:21] LABS: Alanine Aminotransfer (ALT/SGP 33 U/L (12-78); Albumin, Blood 3.4 g/dL (3.4-5.0); Albumin/Globulin Ratio 1.2 (0.8-1.8); Alk Phos 50 U/L (50-136); Anion Gap 7 mmol/L (6-16); Aspartate Aminotrans (AST/SGOT 13 U/L (12-37); Bilirubin, Total 0.4 mg/dL (0.1-1.0); Blood Urea Nitrogen 15 mg/dL (8-24); Bun/Creatinine Ratio 20.1 (12.0-20.0); CO2, Blood 26 mmol/L (21-32); Calcium, Blood 8.1 mg/dL (8.5-10.1); Chloride, Blood 107 mmol/L (98-108); Creatinine, Blood 0.75 mg/dL (0.60-1.20); Globulin, Blood 2.9 g/dL (2.2-4.0); Glomerular Filtration Rate >60 (60-); Glucose, Blood 102 mg/dL (70-99); Potassium, Blood 3.5 mmol/L (3.5-5.5); Sodium, Blood 140 mmol/L (136-145); Total Protein, Blood 6.3 g/dL (6.4-8.2)
[2017-12-01 13:09] LABS: Troponin I 0.038 ng/mL (0.000-0.040)
[2017-12-02] MEDS ORDERED: Procardia10 MG PO (15:39)
[2017-12-02] MEDS ORDERED: Fentanyl1 EACH TD (15:40)
== END 2017-12-02 15:57 | disposition home or self-care (01) ==
LOC: DELPENDDIS → ER 19:31 → MEDS 23:08 → ENPENDDIS 12-01 07:58 → MEDS 12-02 15:57
PROVIDERS: Emergency Medicine; Internal Medicine
DX: I20.1 Angina pectoris with documented spasm (principal); M54.9 Dorsalgia, unspecified; G89.29 Other chronic pain; G47.30 Sleep apnea, unspecified; I10 Essential (primary) hypertension; I11.9 Hypertensive heart disease without heart failure; I43 Cardiomyopathy in diseases classified elsewhere; Z88.0 Allergy status to penicillin; Z79.82 Long term (current) use of aspirin; Z79.899 Other long term (current) drug therapy; Z99.89 Dependence on other enabling machines and devices
CPT/HCPCS: 36415; 71046; 71260; 80053; 81001; 82550; 83880; 84484; 85025; 85027; 85379; 90686; 93005; 93010; 93306; 96372; 96374; 96375; 96376; 99285-25; G0008; G0378; J1650; J1885; J2405; J3010; Q9967

== ENCOUNTER 2017-12-13 17:42 | Emergency (ER) | payer OTHER ==
[~2017-12-13] VITALS: Ht 188 cm; Wt 135.2 kg
[~2017-12-13 17:42] MED LIST changes: +Fentanyl1 EACH TD; +Procardia10 MG PO
[2017-12-13] MEDS ORDERED: NIFE90ER PO (18:14)
== END 2017-12-13 18:31 | disposition home or self-care (01) ==
LOC: ER 17:42
DX: R07.9 Chest pain, unspecified (principal); Z88.0 Allergy status to penicillin; Z79.899 Other long term (current) drug therapy; Z79.82 Long term (current) use of aspirin; Z79.891 Long term (current) use of opiate analgesic; I10 Essential (primary) hypertension
CPT/HCPCS: 36415; 93005; 93010; 99284-25

== ENCOUNTER 2018-03-03 17:20 | Emergency (ER) | payer OTHER ==
[~2018-03-03] VITALS: Ht 188 cm; Wt 136.1 kg
[~2018-03-03 17:20] MED LIST changes: +ACETAMINOPHEN500 MG PO; +AMLO5 PO; +ATOR20 PO; +ISOMON20 PO; +Isosorbide Mono60 MG PO; +METO25ER PO; +MORP15ER PO; +NEBI5 PO; +NIFE90ER PO; +Nitroglycerin1 EAC1 TD; +TRAM50 PO
[2018-03-03 17:51] LABS: BASOPHILS ABSOLUTE AUTO 0.08 K/mm3 (0.00-0.23); BASOPHILS PERCENT AUTO 1 % (0-2); EOSINOPHILS ABSOLUTE AUTO 0.21 K/mm3 (0.00-0.68); EOSINOPHILS PERCENT AUTO 2 % (0-6); Hematocrit 44.5 % (37.0-53.0); Hemoglobin 15.1 g/dL (13.5-17.5); IMMATURE GRAN ABSOLUTE AUTO 0.08 K/mm3 (0.00-0.10); IMMATURE GRAN PERCENT AUTO 1 % (0-1); LYMPHOCYTES ABSOLUTE AUTO 2.29 K/mm3 (0.84-5.20); LYMPHOCYTES PERCENT AUTO 21 % (21-46); MONOCYTES PERCENT AUTO 7 % (4-13); Mean Corpuscular HGB 29.1 pg (26.0-34.0); Mean Corpuscular HGB Conc 33.9 g/dL (31.5-36.5); Mean Corpuscular Volume 86 fL (80-100); Mean Platelet Volume 9.5 fL (9.1-12.4); NEUTROPHILS PERCENT AUTO 69 % (41-73); Platelet Count 327 K/mm3 (150-400); RDW Coefficient Variation 11.8 % (11.7-14.2); Red Blood Cell Count 5.19 M/mm3 (4.30-5.90); White Blood Cell Count 11.16 K/mm3 (4.00-11.30)
[2018-03-03 18:09] LABS: Alanine Aminotransfer (ALT/SGP 49 U/L (12-78); Albumin, Blood 4.1 g/dL (3.4-5.0); Albumin/Globulin Ratio 1.2 (0.8-1.8); Alk Phos 59 U/L (50-136); Anion Gap 10 mmol/L (6-16); Aspartate Aminotrans (AST/SGOT 20 U/L (12-37); Bilirubin, Total 0.4 mg/dL (0.1-1.0); Blood Urea Nitrogen 13 mg/dL (8-24); Bun/Creatinine Ratio 15.1 (12.0-20.0); CO2, Blood 22 mmol/L (21-32); Calcium, Blood 9.4 mg/dL (8.5-10.1); Chloride, Blood 107 mmol/L (98-108); Creatinine, Blood 0.86 mg/dL (0.60-1.20); Globulin, Blood 3.5 g/dL (2.2-4.0); Glomerular Filtration Rate >60 (60-); Glucose, Blood 109 mg/dL (70-99); Potassium, Blood 3.7 mmol/L (3.5-5.5); Sodium, Blood 139 mmol/L (136-145); Total Protein, Blood 7.6 g/dL (6.4-8.2); Troponin I <0.015 ng/mL (0.000-0.040)
== END 2018-03-03 21:25 | disposition home or self-care (01) ==
LOC: ER 17:20
PROVIDERS: Emergency Medicine
DX: R07.9 Chest pain, unspecified (principal); Z88.0 Allergy status to penicillin; Z79.899 Other long term (current) drug therapy; Z79.82 Long term (current) use of aspirin; Z79.891 Long term (current) use of opiate analgesic; I10 Essential (primary) hypertension
CPT/HCPCS: 36415; 71046; 80053; 84484; 85025; 93005; 93010; 96374; 96375; 99285-25; J1885; J2270

== ENCOUNTER 2018-05-11 16:59 | Emergency (ER) | payer OTHER ==
[~2018-05-11] VITALS: Ht 188 cm; Wt 136.1 kg
[2018-05-11] MEDS ORDERED: NARCAN4 MG INH (17:21)
[2018-05-11] MEDS ORDERED: LOPE2C PO (17:25)
[2018-05-11] MEDS ORDERED: NASACORT10.8 ML (17:25)
[2018-05-11] MEDS ORDERED: VENL150ER PO (17:27)
[2018-05-11] MEDS ORDERED: RANO500T PO (17:29)
[2018-05-11] MEDS ORDERED: MONT10T PO (17:30)
[2018-05-11 17:42] LABS: BASOPHILS ABSOLUTE AUTO 0.08 K/mm3 (0.00-0.23); BASOPHILS PERCENT AUTO 1 % (0-2); EOSINOPHILS ABSOLUTE AUTO 0.13 K/mm3 (0.00-0.68); EOSINOPHILS PERCENT AUTO 1 % (0-6); Hematocrit 41.1 % (37.0-53.0); Hemoglobin 14.1 g/dL (13.5-17.5); IMMATURE GRAN ABSOLUTE AUTO 0.11 K/mm3 (0.00-0.10); IMMATURE GRAN PERCENT AUTO 1 % (0-1); LYMPHOCYTES ABSOLUTE AUTO 2.62 K/mm3 (0.84-5.20); LYMPHOCYTES PERCENT AUTO 23 % (21-46); MONOCYTES ABSOLUTE AUTO 0.82 K/mm3 (0.16-1.47); MONOCYTES PERCENT AUTO 7 % (4-13); Mean Corpuscular HGB 29.4 pg (26.0-34.0); Mean Corpuscular HGB Conc 34.3 g/dL (31.5-36.5); Mean Corpuscular Volume 86 fL (80-100); NEUTROPHILS ABSOLUTE AUTO 7.51 K/mm3 (1.96-9.15); NEUTROPHILS PERCENT AUTO 67 % (41-73); Platelet Count 267 K/mm3 (150-400); RDW Coefficient Variation 11.9 % (11.7-14.2); RDW Standard Deviation 36.9 fL (35.1-46.3); White Blood Cell Count 11.27 K/mm3 (4.00-11.30)
[2018-05-11 18:03] LABS: Alanine Aminotransfer (ALT/SGP 51 U/L (12-78); Albumin, Blood 3.9 g/dL (3.4-5.0); Albumin/Globulin Ratio 1.2 (0.8-1.8); Alk Phos 63 U/L (50-136); Anion Gap 8 mmol/L (6-16); Aspartate Aminotrans (AST/SGOT 18 U/L (12-37); Bilirubin, Total 0.4 mg/dL (0.1-1.0); Blood Urea Nitrogen 11 mg/dL (8-24); Bun/Creatinine Ratio 13.8 (12.0-20.0); CO2, Blood 23 mmol/L (21-32); Calcium, Blood 8.8 mg/dL (8.5-10.1); Chloride, Blood 108 mmol/L (98-108); Globulin, Blood 3.3 g/dL (2.2-4.0); Glomerular Filtration Rate >60 (60-); Glucose, Blood 127 mg/dL (70-99); Potassium, Blood 3.6 mmol/L (3.5-5.5); Sodium, Blood 139 mmol/L (136-145); Total Protein, Blood 7.2 g/dL (6.4-8.2); Troponin I <0.015 ng/mL (0.000-0.040)
== END 2018-05-11 18:45 | disposition home or self-care (01) ==
LOC: ER 16:59
PROVIDERS: Emergency Medicine
DX: I20.1 Angina pectoris with documented spasm (principal); I11.0 Hypertensive heart disease with heart failure; I50.9 Heart failure, unspecified; F17.220 Nicotine dependence, chewing tobacco, uncomplicated; Z79.899 Other long term (current) drug therapy; Z79.82 Long term (current) use of aspirin; Z79.891 Long term (current) use of opiate analgesic
CPT/HCPCS: 71046; 80053; 83690; 83880; 84484; 85025; 93005; 93010; 96374; 96375; 99285-25; J1200; J1630

== ENCOUNTER 2018-05-17 20:43 | Emergency (ER) | payer OTHER ==
[~2018-05-17] VITALS: Ht 188 cm; Wt 140.6 kg
[~2018-05-17 20:43] MED LIST changes: +LOPE2C PO; +MONT10T PO; +NARCAN4 MG INH; +NASACORT10.8 ML; +RANO500T PO; +VENL150ER PO
[2018-05-18] MEDS ORDERED: Cyclobenzaprine5 MG PO (00:16)
[2018-05-18] MEDS ORDERED: KETO10 PO (00:16)
[2018-05-19] MEDS ORDERED: Prednisone20 MG PO (22:56)
[2018-05-19] MEDS ORDERED: Norco 5-325 Ta1 EACH PO (23:07)
== END 2018-05-18 00:40 | disposition home or self-care (01) ==
LOC: ER 20:43
DX: M54.42 Lumbago with sciatica, left side (principal); G89.29 Other chronic pain; Z88.0 Allergy status to penicillin; Z79.899 Other long term (current) drug therapy; Z79.82 Long term (current) use of aspirin; I10 Essential (primary) hypertension
CPT/HCPCS: 96372; 99283-25; J1885

== ENCOUNTER 2018-05-19 18:26 | Emergency (ER) | payer OTHER ==
[~2018-05-19] VITALS: Ht 185.4 cm; Wt 140.6 kg
[~2018-05-19 18:26] MED LIST changes: +Cyclobenzaprine5 MG PO; +KETO10 PO
[2018-05-19] MEDS ORDERED: Prednisone20 MG PO (22:56)
[2018-05-19] MEDS ORDERED: Norco 5-325 Ta1 EACH PO (23:07)
== END 2018-05-20 00:01 | disposition home or self-care (01) ==
LOC: ER 18:26
DX: G89.29 Other chronic pain (principal); M54.5 Low back pain; I10 Essential (primary) hypertension; Z88.0 Allergy status to penicillin; Z88.1 Allergy status to other antibiotic agents; Z79.82 Long term (current) use of aspirin; Z79.899 Other long term (current) drug therapy; Z98.1 Arthrodesis status
CPT/HCPCS: 96372; 99283-25; J1170; J2550

== ENCOUNTER → 2018-06-24 | Outpatient (CLI) | payer OTHER ==
[~2018-06-24] MED LIST changes: +Norco 5-325 Ta1 EACH PO; +Prednisone20 MG PO
== END ==
LOC: LAB SHORT 07:39 → PLD 07:39
DX: D48.5 Neoplasm of uncertain behavior of skin (principal)
CPT/HCPCS: 88342

== ENCOUNTER 2018-06-29 17:14 | Emergency (ER) | payer OTHER ==
[~2018-06-29] VITALS: Ht 188 cm; Wt 145.2 kg
[2018-06-29 17:54] LABS: BASOPHILS ABSOLUTE AUTO 0.09 K/mm3 (0.00-0.23); BASOPHILS PERCENT AUTO 1 % (0-2); EOSINOPHILS PERCENT AUTO 4 % (0-6); Hematocrit 44.7 % (37.0-53.0); IMMATURE GRAN ABSOLUTE AUTO 0.07 K/mm3 (0.00-0.10); IMMATURE GRAN PERCENT AUTO 1 % (0-1); LYMPHOCYTES ABSOLUTE AUTO 2.21 K/mm3 (0.84-5.20); LYMPHOCYTES PERCENT AUTO 27 % (21-46); MONOCYTES ABSOLUTE AUTO 0.69 K/mm3 (0.16-1.47); MONOCYTES PERCENT AUTO 8 % (4-13); Mean Corpuscular HGB 29.7 pg (26.0-34.0); Mean Corpuscular HGB Conc 33.6 g/dL (31.5-36.5); Mean Corpuscular Volume 89 fL (80-100); Mean Platelet Volume 9.5 fL (9.1-12.4); NEUTROPHILS ABSOLUTE AUTO 4.86 K/mm3 (1.96-9.15); NEUTROPHILS PERCENT AUTO 59 % (41-73); Platelet Count 283 K/mm3 (150-400); RDW Coefficient Variation 11.9 % (11.7-14.2); RDW Standard Deviation 38.2 fL (35.1-46.3); Red Blood Cell Count 5.05 M/mm3 (4.30-5.90); White Blood Cell Count 8.22 K/mm3 (4.00-11.30)
[2018-06-29 18:20] LABS: Alanine Aminotransfer (ALT/SGP 73 U/L (12-78); Albumin, Blood 4.4 g/dL (3.4-5.0); Albumin/Globulin Ratio 1.2 (0.8-1.8); Alk Phos 68 U/L (50-136); Anion Gap 10 mmol/L (6-16); Aspartate Aminotrans (AST/SGOT 39 U/L (12-37); Bilirubin, Total 0.5 mg/dL (0.1-1.0); Blood Urea Nitrogen 15 mg/dL (8-24); CO2, Blood 22 mmol/L (21-32); Calcium, Blood 9.4 mg/dL (8.5-10.1); Chloride, Blood 104 mmol/L (98-108); Creatinine, Blood 0.88 mg/dL (0.60-1.20); Globulin, Blood 3.6 g/dL (2.2-4.0); Glomerular Filtration Rate >60 (60-); Glucose, Blood 185 mg/dL (70-99); Sodium, Blood 136 mmol/L (136-145)
[2018-06-29 18:21] LABS: Troponin I 0.028 ng/mL (0.000-0.040)
== END 2018-06-29 22:16 | disposition home or self-care (01) ==
LOC: ER 17:14
PROVIDERS: Emergency Medicine
DX: R07.9 Chest pain, unspecified (principal); R51 Headache; I10 Essential (primary) hypertension; Z88.0 Allergy status to penicillin; Z88.1 Allergy status to other antibiotic agents; Z79.82 Long term (current) use of aspirin; Z79.899 Other long term (current) drug therapy; Z79.52 Long term (current) use of systemic steroids
CPT/HCPCS: 36415; 71046; 80053; 83690; 84484; 85025; 93005; 93010; 96374; 99285-25; J1885

== ENCOUNTER 2018-08-11 20:54 | Emergency (ER) | payer OTHER ==
[~2018-08-11] VITALS: Ht 188 cm; Wt 145.2 kg
[~2018-08-11 20:54] MED LIST changes: +ACET325 PO; +AMLO10 PO; -AMLO5 PO; -ASPI81CH PO; +Aspirin EC81 MG PO; +EPINEPHRIN0.3 MG/0.3 IM; +Flonase 0.05% N16 GM; +METF500 PO; +METO100ER PO; -METO25ER PO; +Nicoderm Cq1 EAC1 TOP; +ONDA4ODT MM; +Oxycodone HCl20 M1 PO; -SPIR25 PO; +SPIR50 PO
[2018-08-11 21:55] LABS: BASOPHILS PERCENT AUTO 1 % (0-2); EOSINOPHILS ABSOLUTE AUTO 0.29 K/mm3 (0.00-0.68); EOSINOPHILS PERCENT AUTO 3 % (0-6); Hematocrit 41.4 % (37.0-53.0); Hemoglobin 14.4 g/dL (13.5-17.5); IMMATURE GRAN ABSOLUTE AUTO 0.07 K/mm3 (0.00-0.10); IMMATURE GRAN PERCENT AUTO 1 % (0-1); LYMPHOCYTES ABSOLUTE AUTO 2.65 K/mm3 (0.84-5.20); LYMPHOCYTES PERCENT AUTO 28 % (21-46); MONOCYTES ABSOLUTE AUTO 0.81 K/mm3 (0.16-1.47); MONOCYTES PERCENT AUTO 8 % (4-13); Mean Corpuscular HGB 29.6 pg (26.0-34.0); Mean Corpuscular HGB Conc 34.8 g/dL (31.5-36.5); Mean Corpuscular Volume 85 fL (80-100); Mean Platelet Volume 9.7 fL (9.1-12.4); NEUTROPHILS ABSOLUTE AUTO 5.72 K/mm3 (1.96-9.15); NEUTROPHILS PERCENT AUTO 59 % (41-73); Platelet Count 256 K/mm3 (150-400); RDW Coefficient Variation 12.2 % (11.7-14.2); RDW Standard Deviation 37.8 fL (35.1-46.3); Red Blood Cell Count 4.86 M/mm3 (4.30-5.90); White Blood Cell Count 9.64 K/mm3 (4.00-11.30)
[2018-08-11 22:02] LABS: Alanine Aminotransfer (ALT/SGP 99 U/L (12-78); Albumin, Blood 4.1 g/dL (3.4-5.0); Albumin/Globulin Ratio 1.4 (0.8-1.8); Alk Phos 65 U/L (50-136); Anion Gap 10 mmol/L (6-16); Aspartate Aminotrans (AST/SGOT 38 U/L (12-37); Bilirubin, Total 0.4 mg/dL (0.1-1.0); Blood Urea Nitrogen 12 mg/dL (8-24); Bun/Creatinine Ratio 14.1 (12.0-20.0); CO2, Blood 22 mmol/L (21-32); Calcium, Blood 8.9 mg/dL (8.5-10.1); Chloride, Blood 108 mmol/L (98-108); Creatinine, Blood 0.85 mg/dL (0.60-1.20); Globulin, Blood 2.9 g/dL (2.2-4.0); Glomerular Filtration Rate >60 (60-); Glucose, Blood 112 mg/dL (70-99); Potassium, Blood 3.1 mmol/L (3.5-5.5); Sodium, Blood 140 mmol/L (136-145); Troponin I 0.022 ng/mL (0.000-0.040)
[2018-08-13] MEDS ORDERED: Vistaril50 MG PO (02:38)
== END 2018-08-12 01:15 | disposition home or self-care (01) ==
LOC: ER 20:54
PROVIDERS: Emergency Medicine
DX: R07.9 Chest pain, unspecified (principal); Z88.0 Allergy status to penicillin; Z79.899 Other long term (current) drug therapy; Z79.82 Long term (current) use of aspirin; Z79.84 Long term (current) use of oral hypoglycemic drugs; I10 Essential (primary) hypertension; F17.220 Nicotine dependence, chewing tobacco, uncomplicated
CPT/HCPCS: 36415; 71046; 80053; 83735; 83880; 84484; 85025; 93005; 93010; 96374; 96375; 99285-25; J1885

== ENCOUNTER 2018-08-13 00:37 | Emergency (ER) | payer OTHER ==
[~2018-08-13] VITALS: Ht 177.8 cm; Wt 136.1 kg
[2018-08-13 01:02] LABS: BASOPHILS PERCENT AUTO 1 % (0-2); EOSINOPHILS ABSOLUTE AUTO 0.19 K/mm3 (0.00-0.68); EOSINOPHILS PERCENT AUTO 2 % (0-6); Hematocrit 40.2 % (37.0-53.0); Hemoglobin 14.7 g/dL (13.5-17.5); IMMATURE GRAN ABSOLUTE AUTO 0.07 K/mm3 (0.00-0.10); IMMATURE GRAN PERCENT AUTO 1 % (0-1); LYMPHOCYTES PERCENT AUTO 39 % (21-46); MONOCYTES ABSOLUTE AUTO 0.73 K/mm3 (0.16-1.47); MONOCYTES PERCENT AUTO 8 % (4-13); Mean Corpuscular HGB 30.4 pg (26.0-34.0); Mean Corpuscular HGB Conc 36.6 g/dL (31.5-36.5); Mean Corpuscular Volume 83 fL (80-100); Mean Platelet Volume 9.8 fL (9.1-12.4); NEUTROPHILS PERCENT AUTO 49 % (41-73); Platelet Count 266 K/mm3 (150-400); RDW Coefficient Variation 12.3 % (11.7-14.2); Red Blood Cell Count 4.84 M/mm3 (4.30-5.90); White Blood Cell Count 8.79 K/mm3 (4.00-11.30)
[2018-08-13 01:23] LABS: Alanine Aminotransfer (ALT/SGP 93 U/L (12-78); Albumin, Blood 4.1 g/dL (3.4-5.0); Albumin/Globulin Ratio 1.4 (0.8-1.8); Alk Phos 65 U/L (50-136); Anion Gap 16 mmol/L (6-16); Aspartate Aminotrans (AST/SGOT 32 U/L (12-37); Bilirubin, Total 0.3 mg/dL (0.1-1.0); Blood Urea Nitrogen 11 mg/dL (8-24); Bun/Creatinine Ratio 15.3 (12.0-20.0); CO2, Blood 16 mmol/L (21-32); Calcium, Blood 9.2 mg/dL (8.5-10.1); Chloride, Blood 112 mmol/L (98-108); Creatinine, Blood 0.72 mg/dL (0.60-1.20); Glomerular Filtration Rate >60 (60-); Glucose, Blood 155 mg/dL (70-99); Potassium, Blood 3.2 mmol/L (3.5-5.5); Sodium, Blood 144 mmol/L (136-145); Total Protein, Blood 7.1 g/dL (6.4-8.2); Troponin I 0.027 ng/mL (0.000-0.040)
[2018-08-13 01:46] LABS: Source, Urine Clean Catch
[2018-08-13 01:49] LABS: Bilirubin, Urine Neg (Neg); Blood, Urine 2+ (Neg); Glucose Qualitative, Urine Neg (Neg); Ketones, Urine 1+ (Neg); Leukocyte Esterase, Urine Neg (Neg); Nitrite, Urine Neg (Neg); Protein, Urine Neg (Neg); Specific Gravity, Urine 1.025 (1.003-1.022); Urobilinogen, Urine NORM (Normal)
[2018-08-13 01:54] LABS: Appearance, Urine Clear (Clear); Color, Urine Yellow (P-Yellow)
[2018-08-13 01:59] LABS: U Amphetamine Screen Not Detected; U Barbituate Screen Not Detected; U Benzodiazapine Screen Not Detected; U Buprenorphine Screen Not Detected; U Cannabinoids Screen Not Detected; U Cocaine Screen Not Detected; U Methadone Screen Not Detected; U Methamphetamine Screen Not Detected; U Opiates Screen Not Detected; U Oxycodone Screen Not Detected; U Phencyclidine Screen Not Detected; U Propoxyphene Screen Not Detected
[2018-08-13 02:02] LABS: Bacteria Rare /hpf; Mucus Light ({null, 0-Heavy}); Squamous Epithelial Cells Rare /hpf (Few); White Blood Cells, Urine Rare /hpf (0-5)
[2018-08-13] MEDS ORDERED: Vistaril50 MG PO (02:38)
== END 2018-08-13 02:57 | disposition home or self-care (01) ==
LOC: ER 00:37
PROVIDERS: Emergency Medicine
DX: F41.0 Panic disorder [episodic paroxysmal anxiety] (principal); Z88.0 Allergy status to penicillin; Z79.899 Other long term (current) drug therapy; Z79.82 Long term (current) use of aspirin; Z79.84 Long term (current) use of oral hypoglycemic drugs; I10 Essential (primary) hypertension; F17.220 Nicotine dependence, chewing tobacco, uncomplicated
CPT/HCPCS: 36415; 71045; 80053; 81001; 83735; 83880; 84484; 85025; 93005; 93010; 96374; 96375; 99285-25; J1200; J1630

== ENCOUNTER 2018-08-27 11:34 | Emergency (ER) | payer OTHER ==
[~2018-08-27] VITALS: Ht 188 cm; Wt 147.4 kg
[~2018-08-27 11:34] MED LIST changes: +Vistaril50 MG PO
[2018-08-27 12:12] LABS: BASOPHILS ABSOLUTE AUTO 0.07 K/mm3 (0.00-0.23); BASOPHILS PERCENT AUTO 1 % (0-2); EOSINOPHILS ABSOLUTE AUTO 0.46 K/mm3 (0.00-0.68); EOSINOPHILS PERCENT AUTO 7 % (0-6); Hematocrit 40.4 % (37.0-53.0); Hemoglobin 13.6 g/dL (13.5-17.5); IMMATURE GRAN ABSOLUTE AUTO 0.04 K/mm3 (0.00-0.10); IMMATURE GRAN PERCENT AUTO 1 % (0-1); LYMPHOCYTES ABSOLUTE AUTO 1.34 K/mm3 (0.84-5.20); LYMPHOCYTES PERCENT AUTO 22 % (21-46); MONOCYTES ABSOLUTE AUTO 0.68 K/mm3 (0.16-1.47); MONOCYTES PERCENT AUTO 11 % (4-13); Mean Corpuscular HGB 29.7 pg (26.0-34.0); Mean Corpuscular HGB Conc 33.7 g/dL (31.5-36.5); Mean Corpuscular Volume 88 fL (80-100); Mean Platelet Volume 9.8 fL (9.1-12.4); NEUTROPHILS PERCENT AUTO 58 % (41-73); Platelet Count 244 K/mm3 (150-400); RDW Coefficient Variation 12.6 % (11.7-14.2); RDW Standard Deviation 40.5 fL (35.1-46.3); Red Blood Cell Count 4.58 M/mm3 (4.30-5.90); White Blood Cell Count 6.19 K/mm3 (4.00-11.30)
[2018-08-27 12:28] LABS: Alanine Aminotransfer (ALT/SGP 93 U/L (12-78); Albumin, Blood 4.1 g/dL (3.4-5.0); Albumin/Globulin Ratio 1.4 (0.8-1.8); Alk Phos 59 U/L (50-136); Anion Gap 5 mmol/L (6-16); Aspartate Aminotrans (AST/SGOT 40 U/L (12-37); Bilirubin, Total 0.6 mg/dL (0.1-1.0); Blood Urea Nitrogen 12 mg/dL (8-24); Bun/Creatinine Ratio 17.9 (12.0-20.0); CO2, Blood 30 mmol/L (21-32); Chloride, Blood 103 mmol/L (98-108); Creatinine, Blood 0.67 mg/dL (0.60-1.20); Glomerular Filtration Rate >60 (60-); Glucose, Blood 125 mg/dL (70-99); Sodium, Blood 138 mmol/L (136-145); Total Protein, Blood 7.1 g/dL (6.4-8.2)
== END 2018-08-27 14:43 | disposition home or self-care (01) ==
LOC: ER 11:34
PROVIDERS: Emergency Medicine
DX: R60.0 Localized edema (principal); I11.0 Hypertensive heart disease with heart failure; I50.9 Heart failure, unspecified; F17.220 Nicotine dependence, chewing tobacco, uncomplicated; Z79.899 Other long term (current) drug therapy; Z79.82 Long term (current) use of aspirin; Z79.84 Long term (current) use of oral hypoglycemic drugs
CPT/HCPCS: 36415; 80053; 83880; 85025; 93005; 93010; 96374; 99284-25; J1940

== ENCOUNTER 2019-01-27 17:32 | Emergency (ER) | payer OTHER ==
[~2019-01-27] VITALS: Ht 190.5 cm; Wt 136.1 kg
[~2019-01-27 17:32] MED LIST changes: +ATOR40TA PO; +Aspir 8181 MG PO; +Glucophage1000 MG PO; +Isosorbide Mono30 MG PO; +Lisinopril2.5 MG PO
== END 2019-01-27 19:46 | disposition home or self-care (01) ==
LOC: ER 17:32
DX: S90.02XA Contusion of left ankle, initial encounter (principal); S90.32XA Contusion of left foot, initial encounter; I10 Essential (primary) hypertension; I11.0 Hypertensive heart disease with heart failure; I50.9 Heart failure, unspecified; F17.220 Nicotine dependence, chewing tobacco, uncomplicated; Z88.0 Allergy status to penicillin; Z79.899 Other long term (current) drug therapy; Z79.82 Long term (current) use of aspirin; Z79.84 Long term (current) use of oral hypoglycemic drugs; W23.1XXA Caught, crushed, jammed, or pinched between stationary objects, initial encounter
CPT/HCPCS: 29515; 73610; 73630; 99283-25; L1906

== ENCOUNTER 2019-08-03 09:19 | Emergency (ER) | payer OTHER ==
[~2019-08-03] VITALS: Ht 185.4 cm; Wt 129.3 kg
[2019-08-03 10:04] LABS: BASOPHILS ABSOLUTE AUTO 0.07 K/mm3 (0.00-0.23); BASOPHILS PERCENT AUTO 1 % (0-2); EOSINOPHILS ABSOLUTE AUTO 0.21 K/mm3 (0.00-0.68); EOSINOPHILS PERCENT AUTO 3 % (0-6); Hematocrit 46.2 % (37.0-53.0); Hemoglobin 15.6 g/dL (13.5-17.5); IMMATURE GRAN ABSOLUTE AUTO 0.03 K/mm3 (0.00-0.10); IMMATURE GRAN PERCENT AUTO 0 % (0-1); LYMPHOCYTES ABSOLUTE AUTO 1.45 K/mm3 (0.84-5.20); LYMPHOCYTES PERCENT AUTO 19 % (21-46); MONOCYTES ABSOLUTE AUTO 0.45 K/mm3 (0.16-1.47); MONOCYTES PERCENT AUTO 6 % (4-13); Mean Corpuscular HGB 29.5 pg (26.0-34.0); Mean Corpuscular HGB Conc 33.8 g/dL (31.5-36.5); Mean Corpuscular Volume 88 fL (80-100); NEUTROPHILS ABSOLUTE AUTO 5.54 K/mm3 (1.96-9.15); NEUTROPHILS PERCENT AUTO 72 % (41-73); Platelet Count 245 K/mm3 (150-400); RDW Coefficient Variation 11.3 % (11.7-14.2); RDW Standard Deviation 36.5 fL (35.1-46.3); Red Blood Cell Count 5.28 M/mm3 (4.30-5.90); White Blood Cell Count 7.75 K/mm3 (4.00-11.30)
[2019-08-03 10:12] LABS: Alanine Aminotransfer (ALT/SGP 55 U/L (12-78); Albumin, Blood 4.2 g/dL (3.4-5.0); Albumin/Globulin Ratio 1.2 (0.8-1.8); Alk Phos 51 U/L (50-136); Anion Gap 7 mmol/L (6-16); Aspartate Aminotrans (AST/SGOT 24 U/L (12-37); Bilirubin, Total 0.5 mg/dL (0.1-1.0); Blood Urea Nitrogen 9 mg/dL (8-24); Bun/Creatinine Ratio 11.9 (12.0-20.0); CO2, Blood 24 mmol/L (21-32); Calcium, Blood 8.9 mg/dL (8.5-10.1); Chloride, Blood 109 mmol/L (98-108); Creatinine, Blood 0.76 mg/dL (0.60-1.20); Globulin, Blood 3.4 g/dL (2.2-4.0); Glomerular Filtration Rate >60 (60-); Glucose, Blood 132 mg/dL (70-99); Potassium, Blood 3.9 mmol/L (3.5-5.5); Sodium, Blood 140 mmol/L (136-145); Total Protein, Blood 7.6 g/dL (6.4-8.2)
[2019-08-03 10:49] LABS: Source, Urine Clean Catch
[2019-08-03 10:53] LABS: Bilirubin, Urine Neg (Neg); Blood, Urine 1+ (Neg); Glucose Qualitative, Urine Neg (Neg); Ketones, Urine Neg (Neg); Leukocyte Esterase, Urine Neg (Neg); Nitrite, Urine Neg (Neg); Protein, Urine Neg (Neg); Specific Gravity, Urine 1.015 (1.003-1.022); Urobilinogen, Urine NORM (Normal); pH, Urine 6.5 (5.0-8.0)
[2019-08-03 11:11] LABS: Appearance, Urine Clear (Clear); Color, Urine Yellow (P-Yellow)
[2019-08-03 11:12] LABS: Bacteria Few /hpf; Mucus Mod (0-Heavy); Spermatozoa Few /hpf; Squamous Epithelial Cells Not Seen /hpf (Few); White Blood Cells, Urine Not Seen /hpf (0-5)
[2019-08-03] MEDS ORDERED: ONDA4ODT MM (11:12)
[2019-08-03] MEDS ORDERED: Percocet 5-3251 EACH PO (11:12)
[2019-08-03] MEDS ORDERED: Omeprazole20 M1 PO (11:12)
== END 2019-08-03 11:21 | disposition home or self-care (01) ==
LOC: ER 09:19
PROVIDERS: Physician Assistant
DX: K43.9 Ventral hernia without obstruction or gangrene (principal); R11.2 Nausea with vomiting, unspecified; I11.0 Hypertensive heart disease with heart failure; I50.9 Heart failure, unspecified; F17.220 Nicotine dependence, chewing tobacco, uncomplicated; Z88.0 Allergy status to penicillin
CPT/HCPCS: 36415; 74176; 80053; 81001; 83690; 85025; 96361; 96374; 99284-25; J2405; J7030

== ENCOUNTER 2019-08-05 15:33 | Emergency (ER) | payer OTHER ==
[~2019-08-05] VITALS: Ht 188 cm; Wt 129.3 kg
[~2019-08-05 15:33] MED LIST changes: +Omeprazole20 M1 PO
[2019-08-05 17:53] LABS: Anion Gap 7 mmol/L (6-16); Blood Urea Nitrogen 11 mg/dL (8-24); Bun/Creatinine Ratio 15.1 (12.0-20.0); CO2, Blood 25 mmol/L (21-32); Calcium, Blood 8.5 mg/dL (8.5-10.1); Chloride, Blood 109 mmol/L (98-108); Creatinine, Blood 0.73 mg/dL (0.60-1.20); Glomerular Filtration Rate >60 (60-); Glucose, Blood 138 mg/dL (70-99); Potassium, Blood 3.6 mmol/L (3.5-5.5); Sodium, Blood 141 mmol/L (136-145)
== END 2019-08-05 18:49 | disposition home or self-care (01) ==
LOC: ER 15:33
PROVIDERS: Student in an Organized Health Care Education/Training Program
DX: R10.9 Unspecified abdominal pain (principal); I11.0 Hypertensive heart disease with heart failure; I50.9 Heart failure, unspecified; F17.220 Nicotine dependence, chewing tobacco, uncomplicated
CPT/HCPCS: 36415; 74177; 80048; 99284-25; Q9967

== ENCOUNTER 2020-06-12 14:11 | Observation (INO) | payer OTHER ==
[~2020-06-12] VITALS: Ht 188 cm; Wt 128.2 kg
[~2020-06-12 14:11] MED LIST changes: +AMLO5 PO; +HYDROCODONE-AC1 EAC7 PO; +LISI5 PO; +NURTEC ODT75 MG PO; +SPIR25 PO
[2020-06-12 14:55] LABS: BASOPHILS ABSOLUTE AUTO 0.12 K/mm3 (0.00-0.23); BASOPHILS PERCENT AUTO 2 % (0-2); EOSINOPHILS ABSOLUTE AUTO 0.43 K/mm3 (0.00-0.68); EOSINOPHILS PERCENT AUTO 6 % (0-6); Hematocrit 42.3 % (37.0-53.0); Hemoglobin 14.9 g/dL (13.5-17.5); IMMATURE GRAN ABSOLUTE AUTO 0.03 K/mm3 (0.00-0.10); IMMATURE GRAN PERCENT AUTO 0 % (0-1); LYMPHOCYTES ABSOLUTE AUTO 2.19 K/mm3 (0.84-5.20); LYMPHOCYTES PERCENT AUTO 30 % (21-46); MONOCYTES ABSOLUTE AUTO 0.48 K/mm3 (0.16-1.47); MONOCYTES PERCENT AUTO 7 % (4-13); Mean Corpuscular HGB Conc 35.2 g/dL (31.5-36.5); Mean Corpuscular Volume 85 fL (80-100); Mean Platelet Volume 10.1 fL (9.1-12.4); NEUTROPHILS ABSOLUTE AUTO 4.11 K/mm3 (1.96-9.15); NEUTROPHILS PERCENT AUTO 56 % (41-73); Platelet Count 260 K/mm3 (150-400); RDW Coefficient Variation 11.6 % (11.7-14.2); RDW Standard Deviation 35.8 fL (35.1-46.3); Red Blood Cell Count 4.97 M/mm3 (4.30-5.90); White Blood Cell Count 7.36 K/mm3 (4.00-11.30)
[2020-06-12 15:14] LABS: Alanine Aminotransfer (ALT/SGP 62 U/L (12-78); Albumin, Blood 4.3 g/dL (3.4-5.0); Albumin/Globulin Ratio 1.3 (0.8-1.8); Alk Phos 60 U/L (50-136); Anion Gap 7 mmol/L (6-16); Aspartate Aminotrans (AST/SGOT 29 U/L (12-37); Bilirubin, Total 0.7 mg/dL (0.1-1.0); Blood Urea Nitrogen 14 mg/dL (8-24); Bun/Creatinine Ratio 18.7 (12.0-20.0); CO2, Blood 26 mmol/L (21-32); Calcium, Blood 8.8 mg/dL (8.5-10.1); Chloride, Blood 106 mmol/L (98-108); Creatinine, Blood 0.75 mg/dL (0.60-1.20); Globulin, Blood 3.3 g/dL (2.2-4.0); Glomerular Filtration Rate >60 (60-); Glucose, Blood 141 mg/dL (70-99); Potassium, Blood 3.2 mmol/L (3.5-5.5); Sodium, Blood 139 mmol/L (136-145); Total Protein, Blood 7.6 g/dL (6.4-8.2); Troponin I 0.017 ng/mL (0.000-0.040)
[2020-06-12 15:24] LABS: International Normalized Ratio 1.02; Prothrombin Time Results 10.9 Sec (9.7-11.5)
[2020-06-12] MEDS ORDERED: ISOSORBIDE MONO60 MG PO (19:22)
[2020-06-12] MEDS ORDERED: LISI20 PO (19:22)
[2020-06-12] MEDS ORDERED: Aspirin EC81 MG PO (19:22)
[2020-06-12] MEDS ORDERED: TORSE20 PO (19:23)
[2020-06-12] MEDS ORDERED: OMEP20ER PO (19:36)
[2020-06-12] MEDS ORDERED: NEURONTIN600 MG PO (19:36)
[2020-06-12] MEDS ORDERED: CARV25 PO (19:36)
[2020-06-12] MEDS ORDERED: MONT10T PO (19:40)
[2020-06-12] MEDS ORDERED: OXYCODONE-ACET1 EAC2 PO (19:41)
[2020-06-12 23:15] LABS: Source, Urine Clean Catch
[2020-06-12 23:17] LABS: Bilirubin, Urine Neg (Neg); Blood, Urine Neg (Neg); Glucose Qualitative, Urine Neg (Neg); Ketones, Urine Neg (Neg); Leukocyte Esterase, Urine Neg (Neg); Nitrite, Urine Neg (Neg); Protein, Urine Neg (Neg); Urobilinogen, Urine NORM (Normal)
[2020-06-12 23:21] LABS: Appearance, Urine Clear (Clear); Color, Urine Yellow (P-Yellow)
[2020-06-13 04:50] LABS: BASOPHILS ABSOLUTE AUTO 0.08 K/mm3 (0.00-0.23); BASOPHILS PERCENT AUTO 2 % (0-2); EOSINOPHILS ABSOLUTE AUTO 0.45 K/mm3 (0.00-0.68); EOSINOPHILS PERCENT AUTO 8 % (0-6); Hematocrit 38.7 % (37.0-53.0); Hemoglobin 13.1 g/dL (13.5-17.5); IMMATURE GRAN ABSOLUTE AUTO 0.03 K/mm3 (0.00-0.10); IMMATURE GRAN PERCENT AUTO 1 % (0-1); LYMPHOCYTES ABSOLUTE AUTO 1.91 K/mm3 (0.84-5.20); LYMPHOCYTES PERCENT AUTO 35 % (21-46); MONOCYTES ABSOLUTE AUTO 0.52 K/mm3 (0.16-1.47); MONOCYTES PERCENT AUTO 10 % (4-13); Mean Corpuscular HGB 29.9 pg (26.0-34.0); Mean Corpuscular HGB Conc 33.9 g/dL (31.5-36.5); Mean Corpuscular Volume 88 fL (80-100); Mean Platelet Volume 10.1 fL (9.1-12.4); NEUTROPHILS ABSOLUTE AUTO 2.47 K/mm3 (1.96-9.15); NEUTROPHILS PERCENT AUTO 45 % (41-73); Platelet Count 215 K/mm3 (150-400); RDW Coefficient Variation 11.7 % (11.7-14.2); RDW Standard Deviation 37.7 fL (35.1-46.3); Red Blood Cell Count 4.38 M/mm3 (4.30-5.90); White Blood Cell Count 5.46 K/mm3 (4.00-11.30)
[2020-06-13 05:36] LABS: Alanine Aminotransfer (ALT/SGP 48 U/L (12-78); Albumin, Blood 3.7 g/dL (3.4-5.0); Albumin/Globulin Ratio 1.5 (0.8-1.8); Alk Phos 47 U/L (50-136); Anion Gap 5 mmol/L (6-16); Aspartate Aminotrans (AST/SGOT 17 U/L (12-37); Bilirubin, Total 0.2 mg/dL (0.1-1.0); Blood Urea Nitrogen 13 mg/dL (8-24); Bun/Creatinine Ratio 15.2 (12.0-20.0); CO2, Blood 29 mmol/L (21-32); Calcium, Blood 8.6 mg/dL (8.5-10.1); Chloride, Blood 107 mmol/L (98-108); Creatinine, Blood 0.86 mg/dL (0.60-1.20); Globulin, Blood 2.5 g/dL (2.2-4.0); Glomerular Filtration Rate >60 (60-); Glucose, Blood 129 mg/dL (70-99); Potassium, Blood 3.3 mmol/L (3.5-5.5); Sodium, Blood 141 mmol/L (136-145); Total Protein, Blood 6.2 g/dL (6.4-8.2)
[2020-06-13 05:50] LABS: Creatine Kinase MB 2.4 ng/mL (0.0-3.6); Creatine Kinase MB Index 0.7 (0.0-4.0)
--- NOTE | 2020-06-13 06:20 | NUR ---
SHIFT SUMMARY: TYRELL WAS ADMITTED LAST NIGHT FOR CP X3 DAYS. ARRIVED VIA WC, TRANSFERRED INDEPENDENTLY. REPORTS HE HAS HAD CP IN THE PAST AND DOES HAVE CARDIAC HX. PASSED OUT X2 WITH IN LAST 2 DAYS WITH NO MEMORY OF DOING IT. AOX3, INDPENDENT IN THE ROOM. MILD CHEST PAIN THIS SHIFT, BUT MOSTLY NAIK AND CHRONIC BACK PAIN. REPORTS PAIN GOES FROM SHARP STABBING HEAVY WITH SOB AND LEFT ARM NUMBNESS TO WHAT HE CALLS SPELLS. SPELLS IS WHERE HE GETS HEAVY PRESSURE, VISION LOSS AND SOB. TELE HAS BEEN SINUS VIRI. VS WNL, AFEBRILE. NO SOB NOTED. LUNG SOUNDS CLEAR. HR REGULAR, NO GALLOP, MURMUR. SLEPT FOR A SHORT BIT BUT WAS UP REST OF NIGHT. IVF INFUSED WITH NO PROBLEMS. TAKES OXYCODONE Q 4 FOR CHRONIC BACK PAIN. GOT OFF TRACK WITH HIS MEDS BY AN HOUR. WILL PASS ONTO DAYSHIFT TO TRY AND GET HIM BACK ON HIS SCHEDULE. NAIK STILL PRESENT. NO OTHER CONCERNS TO NOTE. CALL LIGHT IS IN REACH.
[2020-06-13 11:49] LABS: U Amphetamine Screen Not Detected
[2020-06-13 11:50] LABS: U Barbituate Screen Not Detected; U Benzodiazapine Screen Not Detected; U Buprenorphine Screen Not Detected; U Cannabinoids Screen Not Detected; U Cocaine Screen Not Detected; U Methadone Screen Not Detected; U Methamphetamine Screen Not Detected; U Phencyclidine Screen Not Detected; U Propoxyphene Screen Not Detected
[2020-06-13 11:51] LABS: U Oxycodone Screen DETECTED
[2020-06-13 11:52] LABS: U Opiates Screen Not Detected
[2020-06-13 12:16] LABS: Troponin I 0.022 ng/mL (0.000-0.040)
[2020-06-13 12:30] LABS: Creatine Kinase MB 2.4 ng/mL (0.0-3.6); Creatine Kinase MB Index 0.8 (0.0-4.0)
--- NOTE | 2020-06-13 14:39 | NUR ---
Echocardiogram completed by Coco Levin under my supervision.
--- NOTE | 2020-06-13 20:05 | NUR ---
SHIFT SUMMARY- PT HAS HAD NO ACUTE CHANGE T/O THE DAY. PT HAD THE FIRST PART OF HIS STRESS TEST TODAY, SPOKE TO RN LABORATORY TECHNICIAN ABOUT THE PT IMDUR DOSE FOR TONIGHT AT 2100, PER [facility] THE IMDUR THIS EVENING SHOULD BE HELD FOR THE SECOND PART OF THE STRESS TEST TOMORROW PLANNED FOR 1330. PT TO BE NPO 4 HOURS PRIOR TO PROCEDURE. PASSED ALL ON TO NIGHT RN IN BEDSIDE REPORT. PT SLEEPING SOUNDLY AT THE TIME OF REPORT, CALL LIGHT IN REACH, NO S&S OF DISTRESS. NIGHT RN AWARE OF THE STRESS TEST PLANS.
--- NOTE | 2020-06-13 21:10 | NUR ---
ASSUMPTION OF CARE. TYRELL IS JUST WAKING UP, UP IN THE ROOM. INDEPENDENT. EYES VERY DROOPY AND APPEARS VERY TIRED. STATES HE JUST TIRED HE WAS UP ALL NIGHT. WAS TOLD IN REPORT THAT WHEN CAME IN SHE MENTIONED THAT TYRELL DOES NOT ALLOW HIS TO KNOW HIS PAIN MEDS, ALSO THAT HE APPEARED TO BE OVER SEDATED THIS MORNING. HE WAS ASKING FOR HIS PAIN MEDS AND FENTANYL. REPORTS CHEST PAIN ACROSS CHEST, AND NUMBNESS DOWN THE LEFT ARM. VS ALL STABLE. HR PER TELE IS SINUS IN THE 60'S, NO EVENTS. INFORMED HIM THAT I WILL HOLD OFF ON FENTANYL DUE TO SYMPTOMS OF SEDATION. HE SAID HE WAS JUST TIRED. PULLED PHARMACY CLAIM HISTORY, HIS OXYCODONE ORDER IS 10/325MG 1 TAB TID. WHEN CONFRONTED ABOUT IT HE SAID HE DOES TAKE 1-2 TABS OF THE 5/325MG EVERY 4 HOURS. WHICH IS DIFFERENT FROM WHAT HE TOLD ON ADMISSION, HE CONTINUED TO TALK HE WAS STUDDERING OVER HIS WORDS, GETTING IRRITATED. INFORMED HIM I WILL HAVE TO CUT BACK ON HIS OXYCODONE HE IS GETTING TO MUCH. HE STARTED TO TALK LIKE HE WILL GO AMA DISPITE THE CHEST PAIN OR HEADACHE. ASKED IF THERE IS ANYTHING ELSE I COULD GIVE HIM FOR THE HEADACHE HE SAID "DILAIDID WORKED LAST TIME". SPOKE TO THE DOCTOR IN REGARDS TO THE SITUATION AND GOT AN ORDER FOR NARCAN, AND DECREASED HIS PAIN MED DOWN TO 1 TAB EVERY 6 HOURS.
--- NOTE | 2020-06-13 22:17 | NUR ---
CLARIFIED MEDICATIONS WITH HIM AND THE DOCTOR. HE FEELS BETTER NOW THAT EVERYTHING IS CORRECT. DID GIVE FENTANYL FOR NAIK. WILL MONITOR.
--- NOTE | 2020-06-14 05:30 | NUR ---
SHIFT SUMMARY: TYRELL WAS NOT HAPPY AT START OF SHIFT HE APPEARED TO SEDATED AND DROWSY. TALKED WITH HIM ABOUT OVER SEDATION AND HE SAID HE WAS FINE. LATER FOUND OUT THE DOSAGE ON HIS OXYCODONE WAS IN CORRECT, THAT HE HADGAVE US THE WRONG AMOUNT AND HE WAS GETTING TO MUCH. PLEASE READ OTHER NOTE FOR FURTHER DETAILS ON THE SITUATION. GOT ORDER DECREASED IN AMOUNT AND TIME FRAME. REPORTS CHEST PAIN THAT TENDS TO WAKE HIM UP MID STERNUM AND THEN HE GETS BAD HEADACHES. USES FENTANYL FOR HEADACHES ONLY 25MG. TENDS TO CALL RIGHT WHEN MEDICATION IS DUE. TELE ALWAYS REPORTS SINUS OR SINUS VIRI. NO EVENTS. VS ALWAYS WNL, AFEBRILE. IS UP INDEPENDENTLY IN THE ROOM WITH NO PROBLEMS OR SYMPTOMS. WILL CONTINUE TO MONITOR TILL DAYSHIFT ARRIVES. CALL LIGHT IS IN REACH.
[2020-06-14 05:51] LABS: Albumin, Blood 3.4 g/dL (3.4-5.0); Anion Gap 6 mmol/L (6-16); Blood Urea Nitrogen 21 mg/dL (8-24); Bun/Creatinine Ratio 28.8 (12.0-20.0); CO2, Blood 27 mmol/L (21-32); Calcium, Blood 8.4 mg/dL (8.5-10.1); Chloride, Blood 112 mmol/L (98-108); Creatinine, Blood 0.73 mg/dL (0.60-1.20); Glomerular Filtration Rate >60 (60-); Glucose, Blood 135 mg/dL (70-99); Phosphorus, Blood 3.4 mg/dL (2.5-4.9); Potassium, Blood 3.7 mmol/L (3.5-5.5); Sodium, Blood 145 mmol/L (136-145)
--- NOTE | 2020-06-14 08:05 | NUR ---
RECIEVED A CALL FROM BROOM MAN ADRIANA. PT HR VIRI AT 40. WENT IN TO ASSESS PT, PT SLEEPING SOUNDLY AT THAT TIME. PT WOKE TO THE SOUND OF STAFF VOICE, SAT UP AT EOB, HR SINUS VIRI. VITALS CHECKED V LEAD OFF CHANGED PATCHES. PT SBP 150'S HR 67 ON VITALS. TELE MONITOR STATES SIN AT 67 AFTER TELE PATCH CHANGE. PT AWAKE UP IN THE ROOM INDEPENDENTLY. PT STATED A HEADACHE AND ASKED FOR MEDICATION. EXPLAINED D/T LOW HR WE SHOULD WAIT FOR A BIT. PT SEEMS TO BE 2-3/10 ON THE PAIN SCALE VISUALY NO S&S OF DISTRESS NOTED AT THE TIME OF ASSESSMENT. WILL REASESS SHORTLY.
--- NOTE | 2020-06-14 18:33 | NUR ---
SHIFT SUMMARY- PT ALERT, ORIENTED AND INDEPENDENT IN THE HALLS. PT HAS SEVERAL MED CHANGES T/O THE DAY. DR FLORES CAME TO SEE HIM THIS EVENING, PLAN IS TO CONSULT CARDIOLOGY AND DISCHARGE BASED ON THE PARTNERSHIP MARKETING MANAGER RECOMENDATIONS. FIORICET ORDERED FOR PT HEADACHES, FENTANYL DC'D. PERCOCET CHANGED TO OXY TO REDUCE THE TYLENOL INTAKE. PT IS SITTING UP IN BED CALL LIGHT IN REACH, PT CALLS APPROPRIATELY. WILL PASS ON TO NIGHT RN IN BEDSIDE REPORT.
--- NOTE | 2020-06-14 19:12 | NUR ---
CALLED DR FLORES- HE SPOKE OF A CARDIOLOGY CONSULT, SOUNDED LIKE HE INTENDED TO DO IT HIMSELF, CALLED TO CLARIFY THAT IT WAS NOT A VERBAL ORDER FOR RN TO FULFILL. LEFT A MESSAGE.
--- NOTE | 2020-06-15 04:34 | NUR ---
SHIFT SUMMARY ADMITTED FOR SYNCOPE/CHEST PAIN. FULL CODE. PLAN IS FOR CARDIOLOGY CONSULT. IF ALL CLEAR, THEN IT IS HOPEFUL FOR DC HOME. PT HAD A SIMILAR EPISODE W/SIMILAR SYMPTOMOLOGY IN 2018, HE HAS BEEN EVALUATED BY [facility] FOR SAME. HE APPEARS TO BE ANXIOUS REGARDING HIS PAIN MEDICATION, REQUESTING IT FREQUENTLY. STRESS TESTS 1 & 2 PERFORMED ON PREVIOUS SHIFTS. TELEMETRY: NSR @ 62 BPM. I HAVE NO NEW CONCERNS WITH THIS PT.
[2020-06-15] MEDS ORDERED: CARV6.25 PO (09:41)
[2020-06-15] MEDS ORDERED: POTCHL20ER PO (09:41)
--- NOTE | 2020-06-15 10:34 | NUR ---
PATIENT DISCHARGE: PATIENT DISCHARGED TO HOME THIS SHIFT. MEDICATION RECONCILIATION COMPLETED; MED LIST FAXED TO [facility]. DISCHARGE EDUCATION COMPLETED WITH PATIENT. PATIENT INDEPENDENT IN ROOM; PATIENT REFUSED WHEELCHAIR TRANSPORT TO EXIT; PATIENT DEPARTED MEDICAL FLOOR AT 1025. PATIENT DEPARTED [facility] VIA PRIVATE AUTO.
== END 2020-06-15 10:25 | disposition home or self-care (01) ==
LOC: ER 14:11 → MEDS 14:12 → ERHOLD 14:12 → MEDS 23:23 → ENPENDDIS 06-15 10:21 → MEDS 06-15 10:25
PROVIDERS: Internal Medicine; Physician Assistant; ADMIT Internal Medicine
DX: R07.9 Chest pain, unspecified (principal); R55 Syncope and collapse; R00.1 Bradycardia, unspecified; R51.9 Headache, unspecified; I42.8 Other cardiomyopathies; I25.10 Atherosclerotic heart disease of native coronary artery without angina pectoris; E66.01 Morbid (severe) obesity due to excess calories; G89.4 Chronic pain syndrome; E87.6 Hypokalemia; D64.9 Anemia, unspecified; E78.5 Hyperlipidemia, unspecified; I11.0 Hypertensive heart disease with heart failure; I50.42 Chronic combined systolic (congestive) and diastolic (congestive) heart failure; E11.9 Type 2 diabetes mellitus without complications; K21.9 Gastro-esophageal reflux disease without esophagitis; F32.9 Major depressive disorder, single episode, unspecified; Z79.82 Long term (current) use of aspirin; Z88.0 Allergy status to penicillin; Z79.891 Long term (current) use of opiate analgesic; Z68.36 Body mass index [BMI] 36.0-36.9, adult
CPT/HCPCS: 36415; 70450; 71046; 78452; 80053; 80069; 81003; 82550; 82553; 83036; 83735; 84484; 85025; 85610; 93005; 93010; 93017; 93306; 96372; 96374; 96375; 96376; 99285-25; A9270; A9500; G0378; J0706; J1650; J1885; J2405; J2785; J3010; J7030

== ENCOUNTER 2020-08-15 20:02 | Emergency (ER) | payer OTHER ==
[~2020-08-15] VITALS: Ht 188 cm; Wt 127.0 kg
[~2020-08-15 20:02] MED LIST changes: +CARV25 PO; +ISOSORBIDE MONO60 MG PO; +NEURONTIN600 MG PO; +OMEP20ER PO; +OXYCODONE-ACET1 EAC2 PO; +POTCHL20ER PO; +TORSE20 PO
[2020-08-15] MEDS ORDERED: IBU800 MG PO (21:48)
[2020-08-15] MEDS ORDERED: CRUTCH4 XX (22:02)
== END 2020-08-15 22:05 | disposition home or self-care (01) ==
LOC: ER 20:02
DX: S93.401A Sprain of unspecified ligament of right ankle, initial encounter (principal); I10 Essential (primary) hypertension; E11.9 Type 2 diabetes mellitus without complications; E78.5 Hyperlipidemia, unspecified; F17.220 Nicotine dependence, chewing tobacco, uncomplicated; Z88.0 Allergy status to penicillin; Z79.899 Other long term (current) drug therapy; X50.1XXA Overexertion from prolonged static or awkward postures, initial encounter
CPT/HCPCS: 29515; 73610; 73630; 99283-25; A9270

== ENCOUNTER → 2020-09-25 | Outpatient (CLI) | payer OTHER ==
[~2020-09-25] MED LIST changes: +CRUTCH4 XX; +IBU800 MG PO
[2020-09-25 16:41] LABS: Anion Gap 2 mmol/L (6-16); Blood Urea Nitrogen 12 mg/dL (8-24); Bun/Creatinine Ratio 13.7 (12.0-20.0); CO2, Blood 34 mmol/L (21-32); Calcium, Blood 8.9 mg/dL (8.5-10.1); Chloride, Blood 104 mmol/L (98-108); Creatinine, Blood 0.88 mg/dL (0.60-1.20); Glomerular Filtration Rate >60 (60-); Glucose, Blood 85 mg/dL (70-99); Potassium, Blood 3.9 mmol/L (3.5-5.5); Sodium, Blood 140 mmol/L (136-145)
== END | disposition home or self-care (01) ==
LOC: LAB SHORT 12:14
PROVIDERS: Orthopaedic Surgery
DX: I10 Essential (primary) hypertension (principal)
CPT/HCPCS: 36415; 80048

== ENCOUNTER 2020-10-02 08:55 | Day surgery (SDC) | payer OTHER ==
[~2020-10-02] VITALS: Ht 188 cm; Wt 128.1 kg
--- NOTE | 2020-10-02 10:01 | NUR ---
10/02/20 1001 Yanet Mcmahon PRP DRAWN AND SENT TO OR
--- NOTE | 2020-10-02 13:10 | NUR ---
10/02/20 1310 WENDY LORENZANA PAIN 5-6 NOW. CAME DOWN A LITTLE. THIS IS MANAGABLE
== END 2020-10-02 13:48 | disposition home or self-care (01) ==
LOC: ORSCSDS 08:55
PROVIDERS: Orthopaedic Surgery
PROC: 0SBF4ZZ Excision of Right Ankle Joint, Percutaneous Endoscopic Approach (ICD-10-PCS; principal; 2020-10-02 10:15)
PROC: 0YP90YZ Removal of Other Device from Right Lower Extremity, Open Approach (ICD-10-PCS; principal; 2020-10-02 10:15)
DX: M19.171 Post-traumatic osteoarthritis, right ankle and foot (principal); T84.9XXA Unspecified complication of internal orthopedic prosthetic device, implant and graft, initial encounter; M25.771 Osteophyte, right ankle; I10 Essential (primary) hypertension
CPT/HCPCS: 82947; A9270; J0171; J1100; J1885; J2250; J2405; J2704; J2795; J3010; J7120

== ENCOUNTER 2020-10-17 14:16 | Emergency (ER) | payer OTHER ==
[~2020-10-17] VITALS: Ht 188 cm; Wt 129.3 kg
[2020-10-17] MEDS ORDERED: ELIQUIS5 M2 PO (16:33)
== END 2020-10-17 17:10 | disposition home or self-care (01) ==
LOC: ER 14:16
DX: I82.441 Acute embolism and thrombosis of right tibial vein (principal); F17.220 Nicotine dependence, chewing tobacco, uncomplicated; I50.42 Chronic combined systolic (congestive) and diastolic (congestive) heart failure; E11.9 Type 2 diabetes mellitus without complications; I11.0 Hypertensive heart disease with heart failure; K21.9 Gastro-esophageal reflux disease without esophagitis; R60.0 Localized edema; Z79.899 Other long term (current) drug therapy; Z79.82 Long term (current) use of aspirin
CPT/HCPCS: 93971; 99282; A9270

== ENCOUNTER 2020-10-23 12:55 | Emergency (ER) | payer OTHER ==
[~2020-10-23] VITALS: Ht 188 cm; Wt 129.3 kg
[~2020-10-23 12:55] MED LIST changes: +ELIQUIS5 M2 PO
[2020-10-23 13:38] LABS: BASOPHILS PERCENT AUTO 1 % (0-2); EOSINOPHILS PERCENT AUTO 5 % (0-6); Hematocrit 41.6 % (37.0-53.0); Hemoglobin 14.5 g/dL (13.5-17.5); IMMATURE GRAN ABSOLUTE AUTO 0.09 K/mm3 (0.00-0.10); IMMATURE GRAN PERCENT AUTO 1 % (0-1); LYMPHOCYTES ABSOLUTE AUTO 1.75 K/mm3 (0.84-5.20); LYMPHOCYTES PERCENT AUTO 22 % (21-46); MONOCYTES ABSOLUTE AUTO 0.57 K/mm3 (0.16-1.47); MONOCYTES PERCENT AUTO 7 % (4-13); Mean Corpuscular HGB 29.8 pg (26.0-34.0); Mean Corpuscular HGB Conc 34.9 g/dL (31.5-36.5); Mean Corpuscular Volume 86 fL (80-100); Mean Platelet Volume 9.6 fL (9.1-12.4); NEUTROPHILS ABSOLUTE AUTO 4.89 K/mm3 (1.96-9.15); NEUTROPHILS PERCENT AUTO 63 % (41-73); Platelet Count 295 K/mm3 (150-400); RDW Coefficient Variation 11.4 % (11.7-14.2); RDW Standard Deviation 35.5 fL (35.1-46.3); Red Blood Cell Count 4.86 M/mm3 (4.30-5.90)
[2020-10-23 14:18] LABS: Alanine Aminotransfer (ALT/SGP 40 U/L (12-78); Albumin, Blood 3.8 g/dL (3.4-5.0); Albumin/Globulin Ratio 1.1 (0.8-1.8); Alk Phos 61 U/L (50-136); Anion Gap 5 mmol/L (6-16); Aspartate Aminotrans (AST/SGOT 18 U/L (12-37); Bilirubin, Total 0.3 mg/dL (0.1-1.0); Blood Urea Nitrogen 9 mg/dL (8-24); CO2, Blood 28 mmol/L (21-32); Calcium, Blood 9.5 mg/dL (8.5-10.1); Chloride, Blood 106 mmol/L (98-108); Creatinine, Blood 0.75 mg/dL (0.60-1.20); Globulin, Blood 3.5 g/dL (2.2-4.0); Glomerular Filtration Rate >60 (60-); Glucose, Blood 128 mg/dL (70-99); Sodium, Blood 139 mmol/L (136-145); Total Protein, Blood 7.3 g/dL (6.4-8.2)
== END 2020-10-23 15:37 | disposition home or self-care (01) ==
LOC: ER 12:55
PROVIDERS: Physician Assistant
DX: I82.441 Acute embolism and thrombosis of right tibial vein (principal); M79.89 Other specified soft tissue disorders; E11.9 Type 2 diabetes mellitus without complications; K21.9 Gastro-esophageal reflux disease without esophagitis; I11.0 Hypertensive heart disease with heart failure; I50.42 Chronic combined systolic (congestive) and diastolic (congestive) heart failure; F17.220 Nicotine dependence, chewing tobacco, uncomplicated; Z88.0 Allergy status to penicillin; Z79.01 Long term (current) use of anticoagulants; Z79.82 Long term (current) use of aspirin; Z79.899 Other long term (current) drug therapy
CPT/HCPCS: 36415; 80053; 85025; 93971; 99284-25

== ENCOUNTER 2020-12-03 08:05 | Observation (INO) | payer OTHER ==
[~2020-12-03] VITALS: Ht 188 cm; Wt 122.5 kg
[2020-12-03 08:43] LABS: BASOPHILS ABSOLUTE AUTO 0.08 K/mm3 (0.00-0.23); BASOPHILS PERCENT AUTO 1 % (0-2); EOSINOPHILS ABSOLUTE AUTO 0.13 K/mm3 (0.00-0.68); EOSINOPHILS PERCENT AUTO 2 % (0-6); Hematocrit 42.9 % (37.0-53.0); Hemoglobin 15.3 g/dL (13.5-17.5); IMMATURE GRAN ABSOLUTE AUTO 0.08 K/mm3 (0.00-0.10); IMMATURE GRAN PERCENT AUTO 1 % (0-1); LYMPHOCYTES ABSOLUTE AUTO 1.19 K/mm3 (0.84-5.20); LYMPHOCYTES PERCENT AUTO 15 % (21-46); MONOCYTES ABSOLUTE AUTO 0.57 K/mm3 (0.16-1.47); MONOCYTES PERCENT AUTO 7 % (4-13); Mean Corpuscular HGB 29.9 pg (26.0-34.0); Mean Corpuscular HGB Conc 35.7 g/dL (31.5-36.5); Mean Corpuscular Volume 84 fL (80-100); Mean Platelet Volume 9.4 fL (9.1-12.4); NEUTROPHILS ABSOLUTE AUTO 5.68 K/mm3 (1.96-9.15); NEUTROPHILS PERCENT AUTO 74 % (41-73); Platelet Count 259 K/mm3 (150-400); RDW Coefficient Variation 12.3 % (11.7-14.2); RDW Standard Deviation 37.1 fL (35.1-46.3); Red Blood Cell Count 5.11 M/mm3 (4.30-5.90); White Blood Cell Count 7.73 K/mm3 (4.00-11.30)
[2020-12-03 09:05] LABS: Alanine Aminotransfer (ALT/SGP 120 U/L (12-78); Albumin, Blood 3.6 g/dL (3.4-5.0); Alk Phos 82 U/L (50-136); Anion Gap 11 mmol/L (6-16); Aspartate Aminotrans (AST/SGOT 65 U/L (12-37); Bilirubin, Total 0.7 mg/dL (0.1-1.0); Blood Urea Nitrogen 6 mg/dL (8-24); Bun/Creatinine Ratio 7.3 (12.0-20.0); CO2, Blood 24 mmol/L (21-32); Calcium, Blood 9.7 mg/dL (8.5-10.1); Chloride, Blood 106 mmol/L (98-108); Creatinine, Blood 0.83 mg/dL (0.60-1.20); Globulin, Blood 3.6 g/dL (2.2-4.0); Glomerular Filtration Rate >60 (60-); Glucose, Blood 180 mg/dL (70-99); Potassium, Blood 2.8 mmol/L (3.5-5.5); Sodium, Blood 141 mmol/L (136-145); Total Protein, Blood 7.2 g/dL (6.4-8.2); Troponin I 0.059 ng/mL (0.000-0.040)
[2020-12-03 10:20] LABS: SARS-Cov-2 (COVID-19) PCR, MMC NEGATIVE (NEGATIVE)
[2020-12-03] MEDS ORDERED: ROXICODONE15 MG PO (11:05)
[2020-12-03] MEDS ORDERED: CARVEDILOL12.5 MG PO (11:07)
[2020-12-03 12:10] LABS: Adenovirus Not Detected (NOT DETECT); Coronavirus 229E Not Detected (NOT DETECT); Coronavirus HKU1 Not Detected (NOT DETECT); Coronavirus NL63 Not Detected (NOT DETECT); Coronavirus OC43 Not Detected (NOT DETECT)
[2020-12-03 12:11] LABS: Bordetella pertussis Not Detected (NOT DETECT); Chlamydophila pneumoniae Not Detected (NOT DETECT); Human Metapneumovirus Not Detected (NOT DETECT); Human Rhinovirus/Enterovirus Detected (NOT DETECT); Influenza A/2009-H1 Not Detected (NOT DETECT); Influenza A/H1 Not Detected (NOT DETECT); Influenza A/H3 Not Detected (NOT DETECT); Influenza B Not Detected (NOT DETECT); Mycoplasma pneumoniae Not Detected (NOT DETECT); Parainfluenza Virus 1 Not Detected (NOT DETECT); Parainfluenza Virus 2 Not Detected (NOT DETECT); Parainfluenza Virus 3 Not Detected (NOT DETECT); Parainfluenza Virus 4 Not Detected (NOT DETECT); Respiratory Syncytial Virus Not Detected (NOT DETECT); SARS-Cov-2 (COVID-19), BioFire Not Detected (NOT DETECT)
[2020-12-03] MEDS ORDERED: ELIQUIS5 M3 PO (12:22)
--- NOTE | 2020-12-03 17:33 | NUR ---
PATIENT ARRIVED TO THE FLOOR ABOUT 1500 FROM THE ED VIA STRETCHER, AMBULATED INDEPENDENTLY TO BED FROM STRETCHER, STEADY ON FEET. NO COMPLAINTS OF CHEST PAIN AT THAT TIME NOR AT THIS TIME. NO COMPLAINTS OF NAUSEA. ALERT AND ORIENTED X 4, ABLE TO MAKE NEEDS AND WANTS KNOWN. CALL LIGHT AND WATER IN EASY REACH. NO SIGNS OR SYMPTOMS ACUTE DISTRESS NOTED. WILL MONITOR.
[2020-12-04 04:25] LABS: BASOPHILS ABSOLUTE AUTO 0.08 K/mm3 (0.00-0.23); BASOPHILS PERCENT AUTO 1 % (0-2); EOSINOPHILS ABSOLUTE AUTO 0.25 K/mm3 (0.00-0.68); EOSINOPHILS PERCENT AUTO 3 % (0-6); Hematocrit 41.2 % (37.0-53.0); Hemoglobin 14.4 g/dL (13.5-17.5); IMMATURE GRAN ABSOLUTE AUTO 0.09 K/mm3 (0.00-0.10); IMMATURE GRAN PERCENT AUTO 1 % (0-1); LYMPHOCYTES ABSOLUTE AUTO 2.44 K/mm3 (0.84-5.20); LYMPHOCYTES PERCENT AUTO 32 % (21-46); MONOCYTES ABSOLUTE AUTO 0.67 K/mm3 (0.16-1.47); MONOCYTES PERCENT AUTO 9 % (4-13); Mean Corpuscular HGB 30.4 pg (26.0-34.0); Mean Corpuscular Volume 87 fL (80-100); Mean Platelet Volume 9.6 fL (9.1-12.4); NEUTROPHILS ABSOLUTE AUTO 4.04 K/mm3 (1.96-9.15); NEUTROPHILS PERCENT AUTO 53 % (41-73); Platelet Count 236 K/mm3 (150-400); RDW Coefficient Variation 12.6 % (11.7-14.2); RDW Standard Deviation 39.4 fL (35.1-46.3); Red Blood Cell Count 4.74 M/mm3 (4.30-5.90); White Blood Cell Count 7.57 K/mm3 (4.00-11.30)
[2020-12-04 04:53] LABS: Alanine Aminotransfer (ALT/SGP 90 U/L (12-78); Albumin, Blood 3.2 g/dL (3.4-5.0); Alk Phos 68 U/L (50-136); Anion Gap 7 mmol/L (6-16); Aspartate Aminotrans (AST/SGOT 31 U/L (12-37); Bilirubin, Total 0.4 mg/dL (0.1-1.0); Blood Urea Nitrogen 10 mg/dL (8-24); Bun/Creatinine Ratio 10.1 (12.0-20.0); CO2, Blood 29 mmol/L (21-32); Calcium, Blood 8.6 mg/dL (8.5-10.1); Chloride, Blood 104 mmol/L (98-108); Creatinine, Blood 0.99 mg/dL (0.60-1.20); Globulin, Blood 3.3 g/dL (2.2-4.0); Glomerular Filtration Rate >60 (60-); Glucose, Blood 117 mg/dL (70-99); Sodium, Blood 140 mmol/L (136-145); Total Protein, Blood 6.5 g/dL (6.4-8.2)
--- NOTE | 2020-12-04 07:50 | NUR ---
SUMMARY PT REPORTS MS EFFECTIVE FOR PAIN CONTROL.ALSO VERB CP FEELS LIKE MUSCLE.
--- NOTE | 2020-12-04 18:09 | NUR ---
SHIFT SUMMARY PATIENT AOX4 ADMITTED WITH CHEST PAIN. PATIENT STILL REPORTS CHEST PAIN INTERMITTANTLY ON SHIFT AND REQUEST PRN MOPHINE PAIN MEDS Q4 HRS. VSS; NO PLANNED INTERVENTION AT THIS TIME, MEDICAL MANAGENT TO INCREASE ISOSORBIDE TO BID
--- NOTE | 2020-12-05 06:39 | NUR ---
PATIENT MEDICATED X 3 WITH PRN 4MG MORPHINE IV. PATIENT WALKED THE HALLWAY WITH AN UNSTEADY GAIT STATING THAT HIS FOOT IS NUMB. PATIENT VITALS ARE STABLE AND SHOWS NO SIGN OF DISTRESS. WILL CONTINUE TO MONITOR.
--- NOTE | 2020-12-06 06:37 | NUR ---
PT IS A/OX3. ABLE TO MAKE HIS NEEDS KNOWN. INDEPENDENT IN ROOM. AMBULATED IN HALLS X1. SL UNSTEADY GAIT NOTED, REPORTS SOME NUMBNESS TO RT FOOT. NO SOB NOTED. CBS. RA. TELE: SR. VSS. MEDICATED FOR C/O CHEST PAIN WITH PRN MORPHINE X2. PT REFUSED PRN NITRO FOR CHEST PAIN. PIV TO LFA PATENT, FLUSHES WELL, IS SL. DENIED ANY GI UPSET, LIKE N/V, ABD PAIN/DISCOMFORT OR INDIGESTION. PT FREQUENTLY ASKED FOR SNACKS DURING THE NIGHT. PT ATE: FOUR (HALF) SANDWICHES, SODA CRACKERS, TOSIN CRACKERS, PUDDING, JELL-O AND 96OZ OF ROOTBEER.
--- NOTE | 2020-12-06 07:14 | NUR ---
PRN MS 4MG IV GIVEN PER RSD REQUEST FOR C/O CHEST PAIN. COMPUTER IN ROOM NOT WORKING, NOT ABLE TO SCAN MED. MANUAL DONE. MED ADMINISTRATION WITNESSED PER DAY CHARGE: SUZANNE MARINELLI.
--- NOTE | 2020-12-06 16:01 | NUR ---
DISCHARGE PATIENT DISCHARGED IN STABLE CONDITION HOME. DISCHARGE INSTRUCTIONS GIVEN TO PATIENT, PATIENT VERBALIZED UNDERSTANDING OF INSTRUCTIONS. PERIPHERAL IV REMOVED, TELE MONITORING DC. PATIENT AMBULATED INDEPENDENTLY TO [facility]
== END 2020-12-06 16:00 | disposition home or self-care (01) ==
LOC: ER 08:05 → MEDS 08:06 → SURS 08:06
PROVIDERS: Emergency Medicine; Nurse Practitioner Acute Care; Physician Assistant; ADMIT Internal Medicine
DX: R07.89 Other chest pain (principal); E11.9 Type 2 diabetes mellitus without complications; I11.0 Hypertensive heart disease with heart failure; I50.22 Chronic systolic (congestive) heart failure; I42.0 Dilated cardiomyopathy; E87.6 Hypokalemia; T50.1X5A Adverse effect of loop [high-ceiling] diuretics, initial encounter; B34.8 Other viral infections of unspecified site; G89.29 Other chronic pain; F32.9 Major depressive disorder, single episode, unspecified; E78.5 Hyperlipidemia, unspecified; K21.9 Gastro-esophageal reflux disease without esophagitis; F17.220 Nicotine dependence, chewing tobacco, uncomplicated; Z79.82 Long term (current) use of aspirin; Z79.01 Long term (current) use of anticoagulants; Z79.891 Long term (current) use of opiate analgesic; Z20.822 Contact with and (suspected) exposure to COVID-19
CPT/HCPCS: 0202U; 36415; 71045; 80053; 82947; 83735; 84484; 85025; 85651; 86140; 93005; 93010; 93308; 93321; 96365; 96366; 96375; 99285-25; A9270; J2001; J2270; J2405; J2765; J3480; J7030; J7050; U0004